=== PATIENT | female | born 1945 | race Caucasian/White ===

== ENCOUNTER → 2017-08-06 10:32 | Outpatient (CLI) | payer MEDICARE, OTHER ==
[2011-08-27 10:57] VITALS: BMI 20.4
== END | disposition home or self-care (01) ==
LOC: D.NM 10:32
DX: R10.9 Unspecified abdominal pain (principal)

== ENCOUNTER 2017-11-09 10:41 | Inpatient (IN) | payer MEDICARE, OTHER ==
[~2017-11-09] VITALS: Ht 162.6 cm; Wt 56.7 kg
--- NOTE | ~2017-11-09 | EC ---
PATIENT:RL BROOKS DATE OF SERVICE: 11/09/17 SEX: F MEDICAL RECORD: [id number] DATE OF : 45 LOCATION:[facility] D230 AGE OF PATIENT: 72 ADMISSION DATE: 11/09/17 REFERRING PHYSICIAN: INTERPRETING PHYSICIAN: EMELY CARDOSO MD ECHOCARDIOGRAM REPORT ECHO CHARGES 4 ECHO COMPLETE Date: 11/19 CLINICAL DIAGNOSIS: CHF ECHOCARDIOGRAPHIC MEASUREMENTS (adult normal given) AC root (d.<3.7cm) 2.7 cm LV Septum d (<1.2 cm> 0.9 cm Valve Excursion 1.6 cm LV Septum (systole) 1.0 cm Left Atria (s.<4.0cm> 3.0 cm LVPW d(<1.2cm) 0.9 cm RV (d.<2.3cm) 3.8 cm LVPW (sytole) 1.0 cm LV diastole(<5.6CM) 4.3 cm MV E-F(>70mm/sec) cm LV systole 3.0 cm LVOT Diameter 1.7 cm MV exc.(>10mm) 1.9 cm Est.ejection fraction (50-75%) % DOPPLER: LVIT cm/sec A 42.0 cm/sec E 97.0 cm/sec LA cm/sec RVSP 52 mmHg LVOT 85 cm/sec AOP1/2T m/s Asc. Ao 104 cm/sec RVOT 52 cm/sec RA cm/sec PA 65 cm/sec AV Gradient Peak 4.35 mmHg AV Mean 2.32 mmHg AV Area 1.9 cm MV Gradient Peak 5.28 mmHg MV Mean 1.51 mmHg MV Area cm COMMENTS: Rehabilitation Aide: Marga NICK Cone Picker: 1 Dr. Levy TAPE# PACS Pericardial Effusion Y DATE OF SERVICE: PROCEDURE: Transthoracic echocardiogram. FINDINGS: 1. Left ventricle shown to have regional wall motion abnormalities. The overall ejection fraction is 40% to 45%. There is hyperdynamic function inferolaterally with akinetic and dyskinetic anterior apical segments. 2. The left atrium is normal size, shape, and function. 3. The aortic valve is normal. ECHOCARDIOGRAM REPORT [id number] RL BROOKS 4. The mitral valve has moderate mitral regurgitation. 5. Tricuspid valve has moderate tricuspid regurgitation, RVSP of 52 mmHg. 6. The right ventricle is mildly dilated. 7. The right atrium is mildly dilated. 8. Pulmonic valve has mild pulmonic insufficiency and there is a trace pericardial effusion. CONCLUSIONS: The patient has evidence of regional wall motion abnormalities consistent with ischemic cardiomyopathy. Ejection fraction is mild to moderately reduced. TRANSINT:[id number] Voice Confirmation ID: [id number] DOCUMENT ID: [id number] EMELY CARDOSO MD at 1029 CC: [id number] DICTATION DATE: 11/20/17 0738 PHARMACY SPECIALIST: 11/20/[address] [facility] [address] [id number]
--- NOTE | ~2017-11-09 | HEMODYNAMI ---
PATIENT:RL BROOKS MEDICAL RECORD: [id number] : 45 LOCATION:[facility] D.2308 ADMISSION DATE: 11/09/17 Generatedon:11/20/201710:46 Patient name: RL BROOKS Patient #: [id number] SSN: : 1945 Date of study: 11/20/2017 Page: Of Hemodynamic Procedure Report Patient Data Patient Demographics Procedure consent was obtained First Name: RL Gender: Female Last Name: TODD : 1945 [facility] Initial: KRISTOPHER Age: 72 year(s) Patient #: [id number] Race: Unknown Additional ID: [id number] Contact details Address: [address] [address] State: [place] City: [place] Zip code: [address] Admission Admission Data Admission Date: 11/09/2017 Admission Time: 10:41 Room #: D.2308 Lab Results Lab Result Date: 11/20/2017 Lab Result Time: 0:00 Biochemistry Name Units Result Min Max BUN mg/dl 18 --(---*)-- 7 18 Creatinine mg/dl 0.7 --(*---)-- 0.6 1.3 CBC Name Units Result Min Max Hemoglobin g/dl 9.8 *-(----)-- 13.5 17.5 Procedure Procedure Types Cath Procedure Diagnostic Procedure [facility] w/Coronaries Sedation Charges Moderate Sedation up to 30 minutes PCI Procedure Coronary Stent Coronary Stent Initial Coronary Stent Additional Procedure Description Procedure Date Procedure Date: 11/20/2017 Procedure Start Time: 10:19 Procedure End Time: 10:43 Procedure Staff Name Function Benoit Levy MD Performing Physician Laura Hay RT Monitor Mimi Bustos RT Scrub James Morrell RN Nurse Procedure Data Cath Procedure Fluoroscopy Diagnostic fluoroscopy Total fluoroscopy Time: 9.8 time: 9.8 min min Diagnostic fluoroscopy Total fluoroscopy dose: dose: 1350 mGy 1350 mGy Contrast Material Contrast Material Type Amount (ml) Isovue 300 139 Entry Location Entry Primary Successful Side Size Upsize Upsize Entry Closure Succes sful Closure Location (Fr) 1 (Fr) 2 (Fr) Remarks Device Remarks Femoral Right 5 Fr 6 Fr Exoseal artery Short Estimated blood loss: 5 ml Diagnostic catheters Device Type Used For End Catheter Placement MULTIPACK Pigtail 5 Fr LV Angiography catheter MULTIPACK JL 4.0 5Fr Left Coronary catheter Angiography MULTIPACK 3DRC 5Fr Right Coronary catheter Angiography Procedure Complications No complications Procedure Medications Medication Administration Route Dosage Oxygen Heparin Flush Bag added to field 2 bags (1000units/500ml NS) 0.9% NaCl I.V. 100 ml/hr Heparin Bolus I.V. 5000 units Hemodynamics Rest HGB: 9.8 (g/dl) Heart Rate: 99 (bpm) Pressure Samples Time Site Value (mmHg) Purpose Heart Use Rate(bpm) 10:21 LV 48/-15,28 Snapshot 29 Snapshots Pre Cath Intra NCS Post Cath Vital Signs Time Heart Resp SPO2 etCO2 NIBP Rhythm Pain Sedation Rate (ipm) (%) (mmHg) (mmHg) Status Level (bpm) 10:05:53 86 15 100 0 114/63(86) NSR 0 (11) 3(A) , No pain 10:10:51 85 15 100 0 102/60(79) NSR 0 (11) 3(A) , No pain 10:14:53 83 15 100 0 111/64(88) NSR 0 (11) 3(A) , No pain 10:18:59 81 16 100 0 111/60(86) NSR 0 (11) 3(A) , No pain 10:23:03 84 16 100 0 134/72(99) NSR 0 (11) 3(A) , No pain 10:27:17 31 15 100 0 114/58(85) NSR 0 (11) 3(A) , No pain 10:31:27 81 15 100 0 105/53(83) NSR 0 (11) 3(A) , No pain 10:35:30 78 15 100 0 103/57(78) NSR 0 (11) 3(A) , No pain 10:39:34 84 15 100 0 105/57(80) NSR 0 (11) 3(A) , No pain 10:43:38 81 15 100 0 109/59(81) NSR 0 (11) 3(A) , No pain Medications Time Medication Route Dose Verified Delivered Reason Notes Effectiveness by by 10:15:09 Oxygen Vent Benoit Dominique Per physician Mildred DAVIS Resp. 10:15:20 Heparin Flush added 2 Benoit Ramirez used for Bag to bags Mildred Morrell memorial designer (1000units/500ml field NS) 10:15:29 0.9% NaCl I.V. 100 Benoit Ramirez Per physician ml/hr Mildred Morrell RN 10:28:09 Heparin Bolus I.V. 5000 Benoit Ramirez for units Mildred Morrell RN anticoagulation Procedure Log Time Note 9:40:19 Laura Hay RT(R) sent for patient. Start room use. 10:04:14 Diagnostic Cath Status : Elective 10:04:32 Time tracking: Regular hours (M-F 7:00 - 5:00) 10:04:35 Plan of Care:Hemodynamics will remain stable., Cardiac rhythm will remain stable., Comfort level will be maintained., Respiratory function will remain adequate., Patient/ family verbilizes understanding of procedure., Procedure tolerated without complication., Recovers from procedure without complications.. 10:04:40 Patient received from ICU to CCL 2 Alert and oriented. Tansferred to table in Supine position. 10:04:41 Warm blankets applied, and kalli hugger turned on for patient comfort. 10:04:41 Correct patient and procedure confirmed by team. 10:04:42 ECG and BP/O2 sat monitors applied to patient. 10:04:44 Signed procedure consent form obtained from patient. 10:04:46 Vital chart was started 10:04:47 Baseline sample Acquired. 10:04:48 Full Disclosure recording started 10:04:52 H&P Date Dictated: 11/20/2017 New H&P dictated by physician.. 10:04:53 Pre-procedure instructions explained to patient. 10:04:54 Pre-op teaching completed and patient verbalized understanding. 10:04:57 Family in waiting room. 10:04:58 Patient NPO since Midnight. 10:05:00 Is the patient allergic to Iodine/contrast media? No. 10:05:01 Was the patient premedicated? No 10:05:03 Is patient on blood thinner?Yes 10:05:06 ACC The patient was administered the following blood thiners within the last 24 hours: ACCPlavix 10:07:28 If diabetic: On Metformin? No 10:07:30 Previous problem with sedation/anesthesia? No ? 10:07:32 Snore? Unknown 10:07:33 Sleep apnea? Unknown 10:07:35 Deviated septum? Unknown 10:07:36 Opens mouth fully? Unknown 10:07:38 Sticks out tongue? Unknown 10:07:40 Airway obstruction? Unknown ? 10:07:43 Dentures? Unknown ? 10:08:41 Pre procedure: right dorsailis pedis pulse Doppler 10:08:46 Patient pain scale 0/10 ?. 10:09:33 IV patent on arrival in left wrist with 0.9% NaCl at [facility]. 10:09:35 Lab results completed and on chart. 10:09:39 Right groin area was prepped with chlora-prep and draped in sterile fashion 10:09:41 Alarms reviewed by R. N. 10:09:41 Sharps counted by scrub and verified by R.N. 10:09:43 Physician arrived 10::43 --------ALL STOP TIME OUT------ 10:09:43 Final Timeout: patient, procedure, and site verified with staff and physician. All members of the team are in agreement. 10:09:45 Right groin site verified by team. 10:09:48 Physical assessment completed. ASA score P 4 - A patient with severe systemic disease that is a constant threat to life as per Benoit Levy MD. 10:09:57 Sedation plan: IV Moderate Sedation Medication:Versed, Fentanyl 10:10:07 Use device set Femoral Dx 10:12:31 ACIST Syringe (70141) opened to sterile field. 10:12:32 Bag Decanter (2002) opened to sterile field. 10:12:32 Medline Cath Pack ([id number]) opened to sterile field. 10:12:33 DIAGNOSTIC WIRE .035 260cm J wire (085164) opened to sterile field. 10:12:35 ACIST Hand Control (90067) opened to sterile field. 10:12:36 ACIST Manifold (36343) opened to sterile field. 10:12:36 DIAGNOSTIC Multipack 5Fr catheter set (MP9730) opened to sterile field. 10:12:40 Tegaderm 4 x 4 (1626W) opened to sterile field. 10:12:48 SHEATH Prelude 5Fr 0.035 (LXF-5V-56-035) opened to sterile field. 10:15:09 Oxygen Vent was administered by Catina Cormier; Per physician; 10:15:20 Heparin Flush Bag (1000units/500ml NS) 2 bags added to field was administered by James Morrell RN; used for procedure; 10:15:29 0.9% NaCl 100 ml/hr I.V. was administered by James Morrell RN; Per physician; 10:16:06 Lab Result : Hemoglobin 9.8 g/dl 10:16:06 Lab Result : Creatinine 0.7 mg/dl 10:16:06 Lab Result : BUN 18 mg/dl 10:18:10 Zero performed for pressure channel P1 10:19:24 Procedure started. 10:19:38 Local anesthetic to right femoral artery with Lidocaine 2% by Benoit Levy MD.INITIAL ACCESS ONLY 10:20:01 A 5 Fr sheath was inserted into the Right Femoral artery 10:20:04 Baseline sample Acquired. 10:21:22 A MULTIPACK Pigtail 5 Fr catheter was advanced over the wire and used for LV Angiography. 10:21:47 LV hemodynamics recorded. 10:21:55 LV gram done using LOZA 10::57 Injector settings: Ml/sec: 5, Volume: 15, 10:22:04 EF : 25 % 10:22:29 Catheter removed. 10:22:34 A MULTIPACK JL 4.0 5Fr catheter was advanced over the wire and used for Left Coronary Angiography. 10:22:57 LCA angiography performed. 10:23:00 Injector settings: Ml/sec: 3, Volume: 6, 10:23:36 Catheter removed. 10:23:41 A MULTIPACK 3DRC 5Fr catheter was advanced over the wire and used for Right Coronary Angiography. 10:24:01 CHOICE PT Extra Support 182cm wire ([id number]) opened to sterile field. 10:24:02 INFLATOR Merit BasixCompak (JV2979) opened to sterile field. 10:24:03 SHEATH 6Fr Prelude ([id number]) opened to sterile field. 10:24:28 RCA angiography performed. 10:24:35 Injector settings: Ml/sec: 3, Volume: 6, 10:24:43 GUIDE 6FR AR 2.0 SH catheter (PE0YT6GL) opened to sterile field. 10:24:49 Catheter removed. 10:24:50 Proceeding to intervention. 10:24:57 Sheath upsized to a 6 Fr Short. 10:25:02 6 Fr ar 2 sh guide catheter was inserted over the wire 10:26:44 Guide Catheter removed. unable to cannulate vessel. 10:26:53 GUIDE 6FR HS II SH catheter ([id number]) opened to sterile field. 10:27:46 6 Fr hs 2 sh guide catheter was inserted over the wire 10:28:09 Heparin Bolus 5000 units I.V. was administered by James Morrell RN; for anticoagulation; 10:30:38 WHISPER 300cm guide wire ([id number]) opened to sterile field. 10:30:57 whisper wire advanced. 10:32:27 Inflate balloon Inflation number: 1 A EMERGE OTW 2.0 x 15 balloon ([id number]) was prepped and advanced across the R PDA, then inflated to 13 MAGGI for 0:10 (min:sec). 10:32:43 Inflation number: 2 The EMERGE OTW 2.0 x 15 balloon ([id number]) was reinflated across the R PDA, to 13 MAGGI for 0:10 (min:sec). 10:33:00 Inflation number: 3 The EMERGE OTW 2.0 x 15 balloon ([id number]) was reinflated across the R PDA, to 0 MAGGI for 0:00 (min:sec). 10:33:09 Inflation number: 4 The EMERGE OTW 2.0 x 15 balloon ([id number]) was reinflated across the R PDA, to 11 MAGGI for 0:10 (min:sec). 10:35:18 Place stent Inflation Number: 5 A PAWEL OTW 2.25 x 26 stent ([id number]) was prepped and advanced across the R PDA. The stent was deployed at 15 MAGGI for 0:10 (min:sec). 10:36:07 Inflation number: 6 The stent balloon was then re-inflated across the R PDA to 15 MAGGI for 0:10 (min:sec). 10:37:53 Stent catheter was removed intact over wire. 10:39:47 Place stent Inflation Number: 1 A PAWEL OTW 3.0 x 12 stent ([id number]) was prepped and advanced across the Prox RCA. The stent was deployed at 17 MAGGI for 0:10 (min:sec). 10:40:18 Stent catheter was removed intact over wire. 10:40:19 Wire removed. 10:40:19 Guide catheter removed. 10:40:27 EXOSEAL 6Fr (EX600) opened to sterile field. 10:40:36 Sheath removed intact; hemostasis achieved with Exoseal to the Right Femoral artery. 10:40:38 Procedure ended.(Physican Out) 10:41:39 Fluoroscopy time 09.80 minutes. 10:41:44 Fluoroscopy dose: 1350 mGy 10:41:44 Flurop Dose total: 1350 10:41:51 Contrast amount:Isovue 300 139ml. 10:41:52 Sharps counted by scrub and verified by R.N. 10:41:55 Insertion/operative site no bleeding no hematoma. 10:42:30 Post-op/insertion site Right Femoral artery dressed using a 4 x 4 and Tegaderm. 10:42:32 Post right femoral artery:stable 10:42:34 Post Procedure Pulses reassessed and unchanged 10:42:36 Post procedure rhythm: unchanged. 10:42:38 Estimated blood loss: 5 ml 10:42:40 Post procedure instruction explained to patient.Patient verbalizes understanding. 10:42:40 Patient needs reinforcement of post procedure teaching. 10:43:13 Procedure type changed to Cath procedure, Diagnostic procedure, LHC, LHC w/Coronaries, Sedation Charges, Moderate Sedation up to 30 minutes, PCI procedure, Coronary Stent, Coronary Stent Initial, Coronary Stent Additional 10:43:14 Procedure and supply charges have been captured, reviewed, submitted and are correct. 10:43:17 Procedure Complication : No complications 10:43:20 Vital chart was stopped 10:43:21 See physician's report for complete and final results. 10:43:22 Report given to ICU. 10:43:24 Patient transfered to ICU with Stretcher. 10:43:27 Procedure ended. 10:43:27 Full Disclosure recording stopped 10:43:45 ACC-PCI Only Patient was given prescriptions, or instructed by Benoit Levy MD to start/continue the following medications upon discharge: Plavix 10:43:46 End room use (Document Last) Intervention Summary Intervention Notes Time ActionType Lesion and Equipment Action# Pressure Duration Attributes Used 10:32:27 Inflate R PDA EMERGE OTW 1 13 00:10 balloon 2.0 x 15 balloon ([id number]) 10:32:43 Reinflate R PDA EMERGE OTW 2 13 00:10 balloon 2.0 x 15 balloon ([id number]) 10:33:00 Reinflate R PDA EMERGE OTW 3 0 00:00 balloon 2.0 x 15 balloon ([id number]) 10:33:09 Reinflate R PDA EMERGE OTW 4 11 00:10 balloon 2.0 x 15 balloon ([id number]) 10:35:18 Place stent R PDA PAWEL OTW 2.25 5 15 00:10 x 26 stent ([id number]) 10:36:07 Reinflate R PDA PAWEL OTW 2.25 6 15 00:10 stent x 26 stent balloon ([id number]) 10:39:47 Place stent Prox RCA PAWEL OTW 3.0 1 17 00:10 x 12 stent ([id number]) Device Usage Item Name Manufacture Quantity Catalog Number Hospital Part Current M inimal Lot# / Charge Number Stock Stock Serial# Code ACIST Syringe Acist 1 00418 238663 889113 613502 2 0 (22094) Medical Systems Inc Bag Decanter Microtek 1 362441 50219 046860 5 () Medical Inc. Medline Cath Cardinal 1 [id number] 961649 04672 028457 5 Pack Health ([id number]) DIAGNOSTIC WIRE St Jakob 1 091142 779347 730130 821488 3 0 .035 260cm J wire (978969) ACIST Hand Acist 1 15020 932979 997227 448558 5 Control (98583) Medical Systems Inc ACIST Manifold Acist 1 68725 041623 633664 062910 5 (91309) Medical Systems Inc DIAGNOSTIC Cardinal 1 PZ8191 306988 22272 330982 3 0 Multipack 5Fr Health catheter set (TS7944) Tegaderm 4 x 4 3M 1 1626W 703618 485207 466381 5 (1626W) SHEATH Prelude Merit 1 BFM-4R-42-035 944499 888338 331598 5 5Fr 0.035 Medical (JTC-2V-54-035) MULTIPACK Cardinal 1 405746 5 Pigtail 5 Fr Health catheter MULTIPACK JL Cardinal 1 206609 5 4.0 5Fr Health catheter MULTIPACK 3DRC Cardinal 1 409632 5 5Fr catheter Health CHOICE PT Extra Nelson 1 [id number] 154112 088880 930526 5 Support 182cm Scientific wire ([id number]) INFLATOR Merit Merit 1 SH0262 472406 705580 370536 1 5 BasCubikal Medical (UM3534) SHEATH 6Fr Merit 1 [id number] 893885 981805 597633 5 Prelude Medical ([id number]) GUIDE 6FR AR Medtronic 1 [id number] 292998 99441 684927 1 2.0 SH catheter (VA2BX8AC) GUIDE 6FR HS II Medtronic 1 [id number] 891795 04460 943199 1 SH catheter ([id number]) WHISPER 300cm Pearl 1 [id number] 360527 653995 394361 5 guide wire Vascular ([id number]) EMERGE OTW 2.0 Nelson 1 [id number] 374712 794866 278631 5 [id number] x 15 balloon Scientific ([id number]) PAWEL OTW 2.25 x Medtronic 1 [id number] 455205 61718 160928 5 [id number] 26 stent ([id number]) PAWEL OTW 3.0 x Medtronic 1 [id number] 653483 058557 130322 5 [id number] 12 stent ([id number]) EXOSEAL 6Fr Cardinal 1 EX600 142840 201594 509541 1 0 (EX600) Health Signature Audit [place] Stage Time Signature Unsigned Intra-Procedure 11/20/2017 Laura Hay 10:46:29 AM RT(R) Signatures Monitor : Laura Hay RT Signature : Date : Time : [facility] [address] [place] [address]
--- NOTE | ~2017-11-09 | OP ---
PATIENT NAME: RL BROOKS MEDICAL RECORD: [id number] :45 LOCATION:D.MS [facility] ADMISSION DATE:11/09/17 SURGEON: PORSHA HUA MD DATE OF OPERATION: 11/20/2017 PROCEDURES: 1. PTCA stent RCA. 2. PTCA stent RCA PDA. 3. Left heart catheterization. 4. Selective coronary angiography. 5. Left ventriculogram. INDICATION: Myocardial infarction. PROCEDURE IN DETAIL: After informed consent was obtained and after a detailed description of the risks, benefits as well as alternative therapies, the patient elected to proceed with angiogram and angioplasty. The right femoral area was prepped and draped in normal sterile fashion. Right femoral artery was cannulated via modified Seldinger technique with placement of 6-Azeri sheath. All catheters exchanged through this sheath. FINDINGS: The left ventriculogram was performed in standard 30-degree LOZA view, reveals anteroapical hypokinesis, ejection fraction 30%. SELECTIVE CORONARY ANGIOGRAPHY: 1. Left main is with no significant angiographic disease. 2. Left anterior descending has previously placed stents, these are widely patent with no significant restenosis. No disease elsewise throughout the LAD or its branches. 3. Left circumflex has moderate irregularities, but no flow-limiting stenosis. 4. The right coronary has previously placed stents. There was 100% stenosis of the PDA stent, 80% in-stent restenosis of the RCA stent. PTCA STENT OF THE RCA AND PDA: The PDA was addressed with a 2.25 x 26 mm Foster. The RCA with a 3.0 x 12 mm Fred. The result was 0% residual throughout latter-day of DANELLE-3 flow. IMPRESSION: Successful SURGERY TECHNICIAN stent of the PDA going from 100% initial stenosis to 0% residual stenosis. Successful PTCA stent of the RCA going from 80% initial stenosis to 0% residual stenosis. TRANSINT:[id number] Voice Confirmation ID: [id number] DOCUMENT ID: [id number] PORSHA HUA MD at 1403 CC: [id number] DICTATION DATE: 11/20/17 1047 CAP SEWER: 11/20/17 1217 [place] [address]
--- NOTE | ~2017-11-09 | CN ---
PATIENT NAME:RL CARRASCO MEDICAL RECORD: [id number] : 45 LOCATION:D.[facility]36 ADMIT DATE: 11/09/17 ACCOUNT: [id number] CONSULTING PHYSICIAN: GERSON JONES MD REFERRING PHYSICIAN: KOBE SOLORZANO MD DATE OF CONSULTATION: 11/09/2017 CONSULT REQUESTING PHYSICIAN: Dr. Kobe Solorzano. REASON FOR CONSULTATION: Pneumonia. HISTORY OF PRESENT ILLNESS: Ms. Carrasco is a 72-year-old female who has a history of Mycobacterium avium. She is sick for the last few weeks. Recently, she was hospitalized at [facility] for chest pain and the cardiac workup was negative. She also had pneumonia at that time. She has chills, no fever. She is coughing with very little yellow color sputum production. For her Mycobacterium avium, she follows at [facility] and she is on Zithromax p.o., ethambutol p.o. REVIEW OF SYSTEMS: Mainly in the history of present illness. PAST MEDICAL HISTORY: 1. Mycobacterium avium since January 2014. 2. Coronary artery disease. 3. Gastroesophageal reflux disease. 4. Hypertension. 5. Hyperlipidemia. 6. Asthma. 7. Backache. PAST SURGICAL HISTORY: 1. She has cardiac catheterization and stent placement. 2. Appendectomy. 3. Status post pacemaker placement. 4. History of elective cardioversion. 5. History of bladder repair. ALLERGIES: SHE IS ALLERGIC TO TICLID. PRESENT MEDICATIONS: [employer] is reviewed. PERSONAL AND SOCIAL HISTORY: The patient is a nonsmoker, nondrinker. FAMILY HISTORY: Noncontributory. The patient is an ex-smoker. PHYSICAL EXAMINATION: VITAL SIGNS: The blood pressure is 103/60, pulse is 89, respiration is 18, temperature 99.9, SPO2 is 96% on 2 liters nasal cannula. HEENT: Conjunctivae are pink. Sclerae are not icteric. NECK: Supple, no JVD. CHEST: The chest excursion is minimal on both sides, there are basal crackles. No wheezing. HEART: Rhythm regular, normal sound, no murmur. ABDOMEN: Soft, bowel sounds present. No hepatosplenomegaly. RECTAL: Deferred. CONSULT REPORT [id number] RL CARRASCO EXTREMITIES: No cyanosis, no clubbing, no pedal edema. SKIN: Warm, normal turgor. CENTRAL NERVOUS SYSTEM: The patient is awake and alert. There are no obvious cranial nerve abnormality. The gait was not tested. IMAGING: Chest x-ray is not available for review. OTHER LABORATORY DATA: CBC: WBC 14,000, hemoglobin 12.4, hematocrit 36.6, the platelet count is 359. Chemistry: Sodium 128, potassium is 4, BUN is 13, creatinine is 0.8, glucose 117. IMPRESSION: 1. Nonresolving pneumonia. 2. Asthma acute exacerbation. 3. Mycobacterium avium infection. The patient follows at [facility] since 2013. 4. Acute cough. 5. Leukocytosis secondary to pneumonia. 6. Gastroesophageal reflux disease. 7. Coronary artery disease. RECOMMENDATION: 1. Continue vancomycin, meropenem, and Levaquin IV. 2. Start on Brovana and budesonide nebulizer. Start her on Singulair. 3. Continue albuterol/ipratropium nebulizer. 4. Mucinex DM 2 tablets b.i.d. We will get the record from the [facility]. We will continue her home medication, Zithromax, and ethambutol. Dr. Fontenot, thank you for involving me in the care of Ms. Carrasco. TRANSINT:[id number] Voice Confirmation ID: [id number] DOCUMENT ID: [id number] GERSON JONES MD at 1806 CC: KOBE SOLORZANO [id number] DICTATION DATE: 11/09/17 1623 SUPERVISOR CHLORINE LIQUEFACTION: 11/09/17 210 ADM IN [address] [place] [address]
--- NOTE | ~2017-11-09 | HP ---
PATIENT: RL BROOKS MEDICAL RECORD: [id number] ACCOUNT: [id number] LOCATION:[id number] : 45 ADMISSION DATE: 11/09/17 HISTORY AND PHYSICAL EXAMINATION DATE OF ADMISSION: 11/09/2017 CHIEF COMPLAINT: Shortness of breath, weakness, coughing, low-grade fever, yellow sputum production. HISTORY OF PRESENT ILLNESS: The patient is a 72-year-old female with longstanding history of having breathing problems. She is cared for by [facility] for Mycobacterium avium chronic conditions. She is treated with daily azithromycin as well as ethambutol. The patient over the past week has had fevers and chills. She has had sweats. She has had green sputum production. She has failed outpatient therapy, was felt the patient should be admitted for further treatment. PAST MEDICAL HISTORY: Significant for having aspergillosis. She has also had history of Mycobacterium avium. She has had vitamin D deficiency. She has had anemia, depression, coronary arteriosclerotic heart disease, history of atrial fibrillation, asthma. She has had a hysterectomy. She had a bladder repair. She also has had 3 stents placed. She had a pacemaker placed. She has had hypertension. MEDICATIONS: Include alendronate 70 mg once a week, amlodipine 10 mg once a day, azithromycin 250 mg once a day, Breo Ellipta 200 mcg/25 mcg 1 puff daily, Plavix 75 mg once a day, Lexapro 10 mg once a day, ethambutol 400 mg once a day, Zetia 10 mg once a day, and Incruse Ellipta 62.5 mcg per day, DuoNeb inhaler 2 puffs q.4 hours p.r.n. shortness of breath, Nitrostat 0.4 mg sublingual q.5 minutes p.r.n. chest pain, Protonix 40 mg once a day, sotalol 80 mg b.i.d., Carafate 1 gm q.a.c. and q.h.s., Zanaflex 2 mg every 8 hours as needed, tramadol 50 mg 1 every 6 hours p.r.n. pain, valsartan/hydrochlorothiazide 320/12.5 once a day, Ventolin HFA 90 mcg once a day, vitamin D3 2000 international units 2 tablets once a day, Ambien 5 mg p.o. q.h.s. ALLERGIES: DOXYCYCLINE, STATINS, SULFA, TICLID, WELCHOL. FAMILY HISTORY: Father at 82 years of age. He had throat as well as bone cancer. Mother had myocardial infarction, at 66 years of age. HABITS: The patient is a nonsmoker, nondrinker. REVIEW OF SYSTEMS: CONSTITUTIONAL: She denies any headaches, seizure or syncope. She denied change in visual or auditory acuity. PULMONARY: She has had cough, congestion, increased shortness of breath. CARDIOVASCULAR: She has had no chest pain, palpitation, PND, or orthopnea. GASTROINTESTINAL: No chronic nausea, vomiting, melena or hematochezia. GENITOURINARY: No urgency, frequency, or dysuria. PHYSICAL EXAMINATION: VITAL SIGNS: Today, the patient's weight is 108, her blood pressure is 122/66, pulse 90, respirations are 14, and temperature 96.8. HEENT: Head is normocephalic. No lesions. Ears: TMs clear. Eyes: Pupils HISTORY AND PHYSICAL [id number] RL BROOKS equal, round, reactive to light. Her extraocular movements are intact. Her nasal cavity, oral cavity, oropharynx clear. NECK: Supple. There is no adenopathy. HEART: Regular rate. LUNGS: She has bibasilar rales. Decreased breath sounds in all cherry. ABDOMEN: Soft, bowel sounds positive. EXTREMITIES: Lower extremities had no edema. LABORATORY DATA AND DIAGNOSTIC STUDIES: Chest x-ray today shows bilateral infiltrates with a stable left upper lobe scarring. CBC has a white count elevated at 15.6. ASSESSMENT: 1. History of chronic Mycobacterium avium, currently undergoing treatment. 2. Bilateral pneumonia. 3. Hypertension. 4. Chronic obstructive pulmonary disease. 5. Arteriosclerotic heart disease. 6. Gastroesophageal reflux. 7. Vitamin D deficiency. PLAN: The patient will be admitted. We will obtain sputum cultures as well as Gram stain. She will be placed on Merrem 1 gm every 8 hours as well as vancomycin 1 gram q.12 hours, pharmacy will dose and get peak and trough. Also placed on Levaquin 500 mg IV q.8 hours. Pulmonary consultation will be obtained, O2 supplementation, pulmonary toiletry. Continue to evaluate. TRANSINT:[id number] Voice Confirmation ID: [id number] DOCUMENT ID: [id number] KOBE SOLORZANO MD at 0612 CC: [id number] DICTATION DATE: 11/09/17 172 BENEFIT AUTHORIZER: 11/09/171952 ADM IN [id number] [place] [address]
[2017-11-09 13:25] LABS: BASOPHILS 0.1 % (0-2); EOSINOPHILS 1.6 % (0-7); HEMATOCRIT 36.6 % (36.0-48.0); HEMOGLOBIN 12.4 g/dL (12-16); IMMATURE GRANULOCYTES 0.8 % (0-5); LYMPHOCYTES 7.9 % (15-50); MCH 28.4 pg (26.0-34.0); MCHC 33.9 g/dL (31.0-37.0); MCV 83.8 fL (80.0-100.0); MEAN PLATELET VOLUME 7.9 fL (7.4-10.4); MONOCYTES 5.4 % (2-11); NEUTROPHILS 84.2 % (40-80); RBC 4.37 10x6/uL (4.00-5.40); RDW 13.6 % (11.5-14.5)
[2017-11-09 13:29] LABS: PLATELET COUNT 359 10x3/uL (130-400)
[2017-11-09 13:34] LABS: ANION GAP 17.4 mmol/L (8-16); CALCIUM 9.2 mg/dL (8.5-10.1); CARBON DIOXIDE 23.6 mmol/L (21.0-32.0); CREATININE - SERUM 0.8 mg/dL (0.6-1.3)
[2017-11-09 14:25] VITALS: BP 103/60
[2017-11-09 16:49] VITALS: BP 119/57
[2017-11-09] MEDS ORDERED: AMBIEN5 MG PO (17:59)
[2017-11-09] MEDS ORDERED: LOTREL 5-40 MG1 EACH (18:01)
[2017-11-09 20:20] VITALS: BP 121/53
[2017-11-10 01:02] VITALS: BP 134/64
[2017-11-10 04:22] VITALS: BP 126/58
[2017-11-10 05:00] LABS: BASOPHILS 0.2 % (0-2); EOSINOPHILS 2.6 % (0-7); HEMATOCRIT 29.9 % (36.0-48.0); IMMATURE GRANULOCYTES 0.9 % (0-5); LYMPHOCYTES 10.3 % (15-50); MCH 28.2 pg (26.0-34.0); MCHC 33.4 g/dL (31.0-37.0); MCV 84.2 fL (80.0-100.0); MEAN PLATELET VOLUME 7.9 fL (7.4-10.4); PLATELET COUNT 349 10x3/uL (130-400); RBC 3.55 10x6/uL (4.00-5.40); RDW 13.8 % (11.5-14.5); WBC 12.5 10x3/uL (4.8-10.8)
[2017-11-10 05:12] LABS: ANION GAP 13.6 mmol/L (8-16); CALCIUM 8.4 mg/dL (8.5-10.1); CARBON DIOXIDE 22.5 mmol/L (21.0-32.0); CREATININE - SERUM 0.9 mg/dL (0.6-1.3); POTASSIUM - SERUM 4.1 mmol/L (3.5-5.1)
[2017-11-10 07:00] VITALS: BP 116/57
[2017-11-10 12:25] VITALS: BP 110/51
[2017-11-10 13:44] VITALS: BMI 18.5
[2017-11-10 17:41] VITALS: BP 123/58
[2017-11-10 20:53] VITALS: BP 122/49
[2017-11-11 01:13] VITALS: BP 134/54
[2017-11-11 04:45] VITALS: BP 124/64
[2017-11-11 05:11] LABS: BASOPHILS 0.2 % (0-2); EOSINOPHILS 2.5 % (0-7); HEMOGLOBIN 9.3 g/dL (12-16); IMMATURE GRANULOCYTES 1.1 % (0-5); LYMPHOCYTES 12.7 % (15-50); MCH 28.1 pg (26.0-34.0); MCHC 33.2 g/dL (31.0-37.0); MCV 84.6 fL (80.0-100.0); MEAN PLATELET VOLUME 7.7 fL (7.4-10.4); NEUTROPHILS 70.5 % (40-80); PLATELET COUNT 301 10x3/uL (130-400); RBC 3.31 10x6/uL (4.00-5.40); RDW 13.6 % (11.5-14.5); WBC 9.7 10x3/uL (4.8-10.8)
[2017-11-11 05:20] LABS: CALC OSMOLALITY 251 mosm/kg (275-300); CALCIUM 8.3 mg/dL (8.5-10.1); CHLORIDE - SERUM 96 mmol/L (98-107); CREATININE - SERUM 0.7 mg/dL (0.6-1.3); GLUCOSE 103 mg/dL (74-106); POTASSIUM - SERUM 3.9 mmol/L (3.5-5.1); SODIUM 127 mmol/L (136-145); eGFR NON AFRICAN AMERICAN 87 mL/min (90-120)
[2017-11-11 05:21] LABS: UREA NITROGEN 4 mg/dL (7-18)
[2017-11-11 07:43] VITALS: BP 128/54
[2017-11-11 12:28] VITALS: BP 115/64
[2017-11-11 15:49] VITALS: BP 128/72
[2017-11-11 20:53] VITALS: BP 118/50
[2017-11-12 02:16] VITALS: BP 118/42
[2017-11-12 04:30] LABS: BASOPHILS 0.2 % (0-2); EOSINOPHILS 2.1 % (0-7); HEMATOCRIT 27.9 % (36.0-48.0); HEMOGLOBIN 9.3 g/dL (12-16); IMMATURE GRANULOCYTES 0.9 % (0-5); LYMPHOCYTES 11.5 % (15-50); MCH 28.1 pg (26.0-34.0); MCHC 33.3 g/dL (31.0-37.0); MCV 84.3 fL (80.0-100.0); MEAN PLATELET VOLUME 7.9 fL (7.4-10.4); NEUTROPHILS 71.3 % (40-80); PLATELET COUNT 331 10x3/uL (130-400); RBC 3.31 10x6/uL (4.00-5.40); RDW 13.8 % (11.5-14.5); WBC 10.1 10x3/uL (4.8-10.8)
[2017-11-12 04:40] LABS: CALC OSMOLALITY 252 mosm/kg (275-300); CALCIUM 7.6 mg/dL (8.5-10.1); CARBON DIOXIDE 26.8 mmol/L (21.0-32.0); CHLORIDE - SERUM 93 mmol/L (98-107); CREATININE - SERUM 0.7 mg/dL (0.6-1.3); GLUCOSE 101 mg/dL (74-106); POTASSIUM - SERUM 3.4 mmol/L (3.5-5.1); SODIUM 127 mmol/L (136-145); eGFR NON AFRICAN AMERICAN 87 mL/min (90-120)
[2017-11-12 04:55] LABS: UREA NITROGEN 6 mg/dL (7-18)
[2017-11-12 04:56] VITALS: BP 124/54
[2017-11-12 07:51] VITALS: BP 120/51
[2017-11-12 12:10] VITALS: BP 121/65
[2017-11-12 15:39] VITALS: BP 130/62
[2017-11-12 20:00] VITALS: BP 125/55
[2017-11-13] VITALS: BP 116/45
[2017-11-13 04:00] VITALS: BP 115/44
[2017-11-13 04:06] LABS: BASOPHILS 0.1 % (0-2); EOSINOPHILS 1.8 % (0-7); HEMATOCRIT 27.7 % (36.0-48.0); HEMOGLOBIN 9.2 g/dL (12-16); IMMATURE GRANULOCYTES 0.8 % (0-5); LYMPHOCYTES 12.4 % (15-50); MCH 27.9 pg (26.0-34.0); MCHC 33.2 g/dL (31.0-37.0); MCV 83.9 fL (80.0-100.0); MEAN PLATELET VOLUME 7.8 fL (7.4-10.4); MONOCYTES 12.2 % (2-11); NEUTROPHILS 72.7 % (40-80); PLATELET COUNT 304 10x3/uL (130-400); RDW 13.6 % (11.5-14.5); WBC 10.8 10x3/uL (4.8-10.8)
[2017-11-13 04:19] LABS: CALC OSMOLALITY 250 mosm/kg (275-300); CALCIUM 8.2 mg/dL (8.5-10.1); CARBON DIOXIDE 26.9 mmol/L (21.0-32.0); CHLORIDE - SERUM 92 mmol/L (98-107); CREATININE - SERUM 0.7 mg/dL (0.6-1.3); GLUCOSE 114 mg/dL (74-106); POTASSIUM - SERUM 3.6 mmol/L (3.5-5.1); SODIUM 125 mmol/L (136-145); UREA NITROGEN 6 mg/dL (7-18); eGFR NON AFRICAN AMERICAN 87 mL/min (90-120)
[2017-11-13 08:10] VITALS: BP 141/42
[2017-11-13 12:40] VITALS: BP 120/47
[2017-11-13 15:59] VITALS: BP 120/64
[2017-11-13 20:00] VITALS: BP 126/57
[2017-11-14] VITALS: BP 112/52
[2017-11-14 04:00] VITALS: BP 108/55
[2017-11-14 07:46] LABS: BASOPHILS 0.2 % (0-2); EOSINOPHILS 1.6 % (0-7); HEMATOCRIT 29.2 % (36.0-48.0); HEMOGLOBIN 9.8 g/dL (12-16); IMMATURE GRANULOCYTES 0.9 % (0-5); LYMPHOCYTES 10.3 % (15-50); MCH 28.1 pg (26.0-34.0); MCHC 33.6 g/dL (31.0-37.0); MCV 83.7 fL (80.0-100.0); MEAN PLATELET VOLUME 8.1 fL (7.4-10.4); MONOCYTES 10.5 % (2-11); NEUTROPHILS 76.5 % (40-80); PLATELET COUNT 342 10x3/uL (130-400); RBC 3.49 10x6/uL (4.00-5.40); RDW 13.4 % (11.5-14.5); WBC 11.7 10x3/uL (4.8-10.8)
[2017-11-14 07:58] LABS: CALC OSMOLALITY 252 mosm/kg (275-300); CALCIUM 8.5 mg/dL (8.5-10.1); CARBON DIOXIDE 30.7 mmol/L (21.0-32.0); CHLORIDE - SERUM 89 mmol/L (98-107); CREATININE - SERUM 0.7 mg/dL (0.6-1.3); GLUCOSE 100 mg/dL (74-106); MAGNESIUM - SERUM 1.6 mg/dL (1.8-2.4); PHOSPHOROUS 2.4 mg/dL (2.5-4.9); POTASSIUM - SERUM 3.1 mmol/L (3.5-5.1); SODIUM 127 mmol/L (136-145); UREA NITROGEN 7 mg/dL (7-18); eGFR NON AFRICAN AMERICAN 87 mL/min (90-120)
[2017-11-14 09:53] VITALS: BP 121/46
[2017-11-14 14:12] VITALS: BP 125/49
[2017-11-14 17:58] VITALS: BP 113/71
[2017-11-14 21:15] VITALS: BP 124/53
[2017-11-15 04:33] VITALS: BP 129/47
[2017-11-15 07:29] LABS: ALBUMIN 1.7 g/dL (3.4-5.0); ANION GAP 10.1 mmol/L (8-16); BILIRUBIN - TOTAL 0.76 mg/dL (0.2-1.3); CALCIUM 8.3 mg/dL (8.5-10.1); CARBON DIOXIDE 28.9 mmol/L (21.0-32.0); CREATININE - SERUM 0.8 mg/dL (0.6-1.3); PROTEIN - SERUM 5.6 g/dL (6.4-8.2)
[2017-11-15 07:35] LABS: BASOPHILS 0.3 % (0-2); EOSINOPHILS 1.2 % (0-7); HEMOGLOBIN 9.3 g/dL (12-16); IMMATURE GRANULOCYTES 0.6 % (0-5); LYMPHOCYTES 11.3 % (15-50); MCH 28.1 pg (26.0-34.0); MCHC 33.2 g/dL (31.0-37.0); MCV 84.6 fL (80.0-100.0); MEAN PLATELET VOLUME 8.1 fL (7.4-10.4); MONOCYTES 11.8 % (2-11); NEUTROPHILS 74.8 % (40-80); PLATELET COUNT 360 10x3/uL (130-400); RBC 3.31 10x6/uL (4.00-5.40); RDW 13.7 % (11.5-14.5); WBC 10.7 10x3/uL (4.8-10.8)
[2017-11-15 08:48] VITALS: BP 120/52
[2017-11-15 11:51] VITALS: BP 100/35
[2017-11-15 17:06] VITALS: BP 133/60
[2017-11-15 18:22] LABS: CALCIUM 8.7 mg/dL (8.5-10.1); CARBON DIOXIDE 26.9 mmol/L (21.0-32.0); CREATININE - SERUM 0.8 mg/dL (0.6-1.3); POTASSIUM - SERUM 3.9 mmol/L (3.5-5.1)
[2017-11-15 21:36] VITALS: BP 115/53
[2017-11-16 02:15] VITALS: BP 108/47
[2017-11-16 04:39] VITALS: BP 104/44
[2017-11-16 09:32] LABS: ALBUMIN 1.8 g/dL (3.4-5.0); ANION GAP 12.7 mmol/L (8-16); BILIRUBIN - TOTAL 0.87 mg/dL (0.2-1.3); CALCIUM 8.5 mg/dL (8.5-10.1); CARBON DIOXIDE 29.4 mmol/L (21.0-32.0); CREATININE - SERUM 0.8 mg/dL (0.6-1.3); POTASSIUM - SERUM 3.1 mmol/L (3.5-5.1); PROTEIN - SERUM 6.2 g/dL (6.4-8.2)
[2017-11-16 09:35] LABS: BASOPHILS 0.1 % (0-2); EOSINOPHILS 0.3 % (0-7); HEMATOCRIT 31.1 % (36.0-48.0); HEMOGLOBIN 10.5 g/dL (12-16); IMMATURE GRANULOCYTES 0.4 % (0-5); LYMPHOCYTES 3.9 % (15-50); MCH 28.3 pg (26.0-34.0); MCHC 33.8 g/dL (31.0-37.0); MCV 83.8 fL (80.0-100.0); MEAN PLATELET VOLUME 8.2 fL (7.4-10.4); MONOCYTES 4.2 % (2-11); NEUTROPHILS 91.1 % (40-80); RBC 3.71 10x6/uL (4.00-5.40); RDW 13.7 % (11.5-14.5)
[2017-11-16 09:39] LABS: PLATELET COUNT 461 10x3/uL (130-400); WBC 19.9 10x3/uL (4.8-10.8)
[2017-11-16 09:52] VITALS: BP 126/52
[2017-11-16 14:54] VITALS: BP 110/40
[2017-11-16 18:48] VITALS: BP 124/64
[2017-11-17 01:35] VITALS: BP 148/54
[2017-11-17 04:00] VITALS: BP 118/53
[2017-11-17 09:30] VITALS: BP 126/75
[2017-11-17 12:58] LABS: BASOPHILS 0.1 % (0-2); EOSINOPHILS 0.8 % (0-7); HEMATOCRIT 26.8 % (36.0-48.0); IMMATURE GRANULOCYTES 0.6 % (0-5); MCHC 33.6 g/dL (31.0-37.0); MCV 83.2 fL (80.0-100.0); MEAN PLATELET VOLUME 8.1 fL (7.4-10.4); NEUTROPHILS 86.5 % (40-80); PLATELET COUNT 469 10x3/uL (130-400); RBC 3.22 10x6/uL (4.00-5.40); RDW 13.8 % (11.5-14.5); WBC 17.2 10x3/uL (4.8-10.8)
[2017-11-17 13:17] LABS: ANION GAP 13.6 mmol/L (8-16); CALCIUM 7.9 mg/dL (8.5-10.1); CARBON DIOXIDE 28.8 mmol/L (21.0-32.0); CREATININE - SERUM 0.9 mg/dL (0.6-1.3); POTASSIUM - SERUM 3.4 mmol/L (3.5-5.1); VANCOMYCIN - TROUGH 29.8 ug/mL (10.0-20.0)
[2017-11-17 13:27] VITALS: BP 130/64
[2017-11-17 15:53] VITALS: BP 112/49
[2017-11-17 20:00] VITALS: BP 115/49
[2017-11-18 04:00] VITALS: BP 120/66
[2017-11-18 04:49] LABS: BASOPHILS 0.1 % (0-2); EOSINOPHILS 2.6 % (0-7); HEMATOCRIT 27.4 % (36.0-48.0); HEMOGLOBIN 9.1 g/dL (12-16); IMMATURE GRANULOCYTES 0.5 % (0-5); LYMPHOCYTES 7.2 % (15-50); MCH 27.8 pg (26.0-34.0); MCHC 33.2 g/dL (31.0-37.0); MCV 83.8 fL (80.0-100.0); NEUTROPHILS 82.6 % (40-80); PLATELET COUNT 508 10x3/uL (130-400); RBC 3.27 10x6/uL (4.00-5.40); RDW 13.9 % (11.5-14.5); WBC 13.7 10x3/uL (4.8-10.8)
[2017-11-18 05:10] LABS: ALBUMIN 1.5 g/dL (3.4-5.0); ALKALINE PHOSPHATASE 67 U/L (46-116); CALC OSMOLALITY 243 mosm/kg (275-300); CALCIUM 8.1 mg/dL (8.5-10.1); CARBON DIOXIDE 29.8 mmol/L (21.0-32.0); CHLORIDE - SERUM 88 mmol/L (98-107); CREATININE - SERUM 0.7 mg/dL (0.6-1.3); GLUCOSE 97 mg/dL (74-106); SODIUM 122 mmol/L (136-145); UREA NITROGEN 7 mg/dL (7-18); VANCOMYCIN - RANDOM 20.1 ug/mL (10.0-20.0); eGFR NON AFRICAN AMERICAN 87 mL/min (90-120)
[2017-11-18 05:14] LABS: ALT (SGPT) 12 U/L (10-68)
[2017-11-18 09:35] VITALS: BP 134/56
[2017-11-18 15:30] VITALS: BP 106/43
[2017-11-18 20:00] VITALS: BP 115/52
[2017-11-19] VITALS (16 sets, daily range): BP systolic 79–125; BP diastolic 7–74; Ht 162.6 cm; Wt 56.7 kg
[2017-11-19 04:19] LABS: BASOPHILS 0.1 % (0-2); EOSINOPHILS 0.6 % (0-7); HEMATOCRIT 29.1 % (36.0-48.0); HEMOGLOBIN 9.5 g/dL (12-16); IMMATURE GRANULOCYTES 0.6 % (0-5); LYMPHOCYTES 4.2 % (15-50); MCH 27.9 pg (26.0-34.0); MCHC 32.6 g/dL (31.0-37.0); MCV 85.3 fL (80.0-100.0); MONOCYTES 5.3 % (2-11); NEUTROPHILS 89.2 % (40-80); PLATELET COUNT 691 10x3/uL (130-400); RBC 3.41 10x6/uL (4.00-5.40); RDW 14.3 % (11.5-14.5); WBC 24.5 10x3/uL (4.8-10.8)
[2017-11-19 04:41] LABS: ALBUMIN 1.8 g/dL (3.4-5.0); BILIRUBIN - TOTAL 0.56 mg/dL (0.2-1.3); CALCIUM 8.6 mg/dL (8.5-10.1); CARBON DIOXIDE 28.9 mmol/L (21.0-32.0); CREATININE - SERUM 0.8 mg/dL (0.6-1.3); PROTEIN - SERUM 6.9 g/dL (6.4-8.2)
[2017-11-19 04:44] LABS: ANION GAP 12.6 mmol/L (8-16); POTASSIUM - SERUM 4.5 mmol/L (3.5-5.1)
[2017-11-20] VITALS (70 sets, daily range): BP systolic 77–127; BP diastolic 43–71
[2017-11-20 02:50] LABS: BASOPHILS 0.1 % (0-2); EOSINOPHILS 0.2 % (0-7); HEMATOCRIT 29.9 % (36.0-48.0); HEMOGLOBIN 9.8 g/dL (12-16); IMMATURE GRANULOCYTES 0.8 % (0-5); LYMPHOCYTES 5.2 % (15-50); MCH 27.6 pg (26.0-34.0); MCHC 32.8 g/dL (31.0-37.0); MCV 84.2 fL (80.0-100.0); MEAN PLATELET VOLUME 7.8 fL (7.4-10.4); NEUTROPHILS 89.7 % (40-80); RBC 3.55 10x6/uL (4.00-5.40); RDW 14.4 % (11.5-14.5); WBC 19.5 10x3/uL (4.8-10.8)
[2017-11-20 03:10] LABS: PLATELET COUNT 517 10x3/uL (130-400)
[2017-11-20 03:20] LABS: ALBUMIN 1.6 g/dL (3.4-5.0); ALKALINE PHOSPHATASE 96 U/L (46-116); ALT (SGPT) 15 U/L (10-68); BILIRUBIN - TOTAL 0.48 mg/dL (0.2-1.3); CALC OSMOLALITY 269 mosm/kg (275-300); CALCIUM 8.4 mg/dL (8.5-10.1); CARBON DIOXIDE 28.3 mmol/L (21.0-32.0); CHLORIDE - SERUM 96 mmol/L (98-107); CREATININE - SERUM 0.7 mg/dL (0.6-1.3); GLUCOSE 140 mg/dL (74-106); MAGNESIUM - SERUM 1.9 mg/dL (1.8-2.4); POTASSIUM - SERUM 4.3 mmol/L (3.5-5.1); PROTEIN - SERUM 5.8 g/dL (6.4-8.2); SODIUM 133 mmol/L (136-145); eGFR NON AFRICAN AMERICAN 87 mL/min (90-120)
[2017-11-20 03:24] LABS: UREA NITROGEN 18 mg/dL (7-18)
[2017-11-20 08:42] LABS: CKMB 3.8 U/L (0.0-3.6); CREATINE KINASE 141 UL (21-215)
[2017-11-20 08:43] LABS: TROPONIN-I 1.061 ng/mL (0.000-0.060)
[2017-11-20 08:48] LABS: APPEARANCE CLOUDY (CLEAR); BILIRUBIN NEGATIVE (NEGATIVE); COLOR YELLOW (YELLOW); GLUCOSE NEGATIVE (NEGATIVE); KETONE NEGATIVE (NEGATIVE); NITRITE NEGATIVE (NEGATIVE); PROTEIN 1+ mg/dL (NEGATIVE); UROBILINOGEN NORMAL (NORMAL)
[2017-11-20 08:53] LABS: AMORPHOUS SEDIMENT <1+ /lpf (NONE SEEN); BACTERIA MODERATE /hpf (NONE SEEN); GRANULAR CAST 0-5 /lpf (NONE SEEN); MUCUS <1+ /lpf (NONE SEEN); RED CELLS - URINE 0-5 /hpf (0-5)
[2017-11-20 14:11] LABS: CKMB 4.8 U/L (0.0-3.6)
[2017-11-20 14:14] LABS: CREATINE KINASE 256 UL (21-215)
[2017-11-20 14:15] LABS: TROPONIN-I 1.338 ng/mL (0.000-0.060)
[2017-11-20 22:48] LABS: CKMB 2.5 U/L (0.0-3.6); CREATINE KINASE 237 UL (21-215)
[2017-11-20 22:50] LABS: TROPONIN-I 1.346 ng/mL (0.000-0.060)
[2017-11-21] VITALS (77 sets, daily range): BP systolic 77–126; BP diastolic 43–85
[2017-11-21 05:03] LABS: BASOPHILS 0.1 % (0-2); EOSINOPHILS 0 % (0-7); HEMATOCRIT 27.7 % (36.0-48.0); LYMPHOCYTES 9.4 % (15-50); MCH 27.3 pg (26.0-34.0); MCHC 32.5 g/dL (31.0-37.0); MCV 83.9 fL (80.0-100.0); MEAN PLATELET VOLUME 8.1 fL (7.4-10.4); MONOCYTES 6.3 % (2-11); NEUTROPHILS 83.2 % (40-80); PLATELET COUNT 617 10x3/uL (130-400)
[2017-11-21 06:10] LABS: ALBUMIN 1.4 g/dL (3.4-5.0); ANION GAP 14.2 mmol/L (8-16); BILIRUBIN - TOTAL 0.57 mg/dL (0.2-1.3); CALCIUM 8.7 mg/dL (8.5-10.1); CARBON DIOXIDE 29.9 mmol/L (21.0-32.0); PROTEIN - SERUM 6.5 g/dL (6.4-8.2)
[2017-11-21 06:21] LABS: CREATININE - SERUM 1.1 mg/dL (0.6-1.3); POTASSIUM - SERUM 3.1 mmol/L (3.5-5.1)
[2017-11-21 16:09] LABS: AFB SPECIMEN PROCESSING Concentration (())
[2017-11-22] VITALS (37 sets, daily range): BP systolic 74–129; BP diastolic 40–83
[2017-11-22 05:31] LABS: BASOPHILS 0.2 % (0-2); EOSINOPHILS 0 % (0-7); HEMATOCRIT 25.8 % (36.0-48.0); HEMOGLOBIN 8.5 g/dL (12-16); IMMATURE GRANULOCYTES 1.1 % (0-5); LYMPHOCYTES 7.7 % (15-50); MCH 27.5 pg (26.0-34.0); MCHC 32.9 g/dL (31.0-37.0); MCV 83.5 fL (80.0-100.0); MEAN PLATELET VOLUME 8.1 fL (7.4-10.4); MONOCYTES 4.3 % (2-11); NEUTROPHILS 86.7 % (40-80); RBC 3.09 10x6/uL (4.00-5.40); RDW 14.8 % (11.5-14.5)
[2017-11-22 05:37] LABS: PLATELET COUNT 468 10x3/uL (130-400); WBC 9.6 10x3/uL (4.8-10.8)
[2017-11-22 05:49] LABS: ALBUMIN 1.4 g/dL (3.4-5.0); ANION GAP 12.5 mmol/L (8-16); BILIRUBIN - TOTAL 0.4 mg/dL (0.2-1.3); CALCIUM 7.3 mg/dL (8.5-10.1); CARBON DIOXIDE 27.9 mmol/L (21.0-32.0); CREATININE - SERUM 1.2 mg/dL (0.6-1.3); POTASSIUM - SERUM 3.4 mmol/L (3.5-5.1); PROTEIN - SERUM 5.3 g/dL (6.4-8.2)
[2017-11-23] VITALS (26 sets, daily range): BP systolic 77–128; BP diastolic 43–90
[2017-11-23 03:52] LABS: BASOPHILS 0.1 % (0-2); EOSINOPHILS 0 % (0-7); IMMATURE GRANULOCYTES 1.2 % (0-5); MCH 28.8 pg (26.0-34.0); MCHC 34.1 g/dL (31.0-37.0); MCV 84.4 fL (80.0-100.0); MEAN PLATELET VOLUME 8.5 fL (7.4-10.4); MONOCYTES 3.2 % (2-11); NEUTROPHILS 90.5 % (40-80); PLATELET COUNT 495 10x3/uL (130-400)
[2017-11-23 04:25] LABS: HEMOGLOBIN 11.6 g/dL (12-16); RBC 4.03 10x6/uL (4.00-5.40)
[2017-11-23 04:28] LABS: ALBUMIN 1.5 g/dL (3.4-5.0); ANION GAP 13.9 mmol/L (8-16); BILIRUBIN - TOTAL 0.5 mg/dL (0.2-1.3); CALCIUM 7.4 mg/dL (8.5-10.1); CARBON DIOXIDE 29.5 mmol/L (21.0-32.0); CREATININE - SERUM 1.1 mg/dL (0.6-1.3); MAGNESIUM - SERUM 2.1 mg/dL (1.8-2.4); PROTEIN - SERUM 6.6 g/dL (6.4-8.2)
[2017-11-23 04:29] LABS: POTASSIUM - SERUM 2.4 mmol/L (3.5-5.1)
[2017-11-23 13:13] LABS: FUNGUS STAIN Final report (())
[2017-11-24] VITALS (24 sets, daily range): BP systolic 92–149; BP diastolic 56–78
[2017-11-24 04:27] LABS: BASOPHILS 0.1 % (0-2); EOSINOPHILS 0 % (0-7); HEMATOCRIT 36.4 % (36.0-48.0); HEMOGLOBIN 12.3 g/dL (12-16); IMMATURE GRANULOCYTES 1.8 % (0-5); LYMPHOCYTES 4.9 % (15-50); MCH 28.9 pg (26.0-34.0); MCHC 33.8 g/dL (31.0-37.0); MCV 85.6 fL (80.0-100.0); MEAN PLATELET VOLUME 8.8 fL (7.4-10.4); MONOCYTES 5.4 % (2-11); NEUTROPHILS 87.8 % (40-80); PLATELET COUNT 580 10x3/uL (130-400); RBC 4.25 10x6/uL (4.00-5.40); RDW 15.3 % (11.5-14.5)
[2017-11-24 04:33] LABS: ANION GAP 14.1 mmol/L (8-16); CALCIUM 7.1 mg/dL (8.5-10.1); CARBON DIOXIDE 27.7 mmol/L (21.0-32.0); CREATININE - SERUM 1.1 mg/dL (0.6-1.3); MAGNESIUM - SERUM 2.1 mg/dL (1.8-2.4); POTASSIUM - SERUM 2.8 mmol/L (3.5-5.1)
[2017-11-25] VITALS (24 sets, daily range): BP systolic 117–159; BP diastolic 69–119
[2017-11-25 05:07] LABS: BASOPHILS 0.1 % (0-2); EOSINOPHILS 0 % (0-7); HEMATOCRIT 33.1 % (36.0-48.0); HEMOGLOBIN 10.7 g/dL (12-16); IMMATURE GRANULOCYTES 1.8 % (0-5); LYMPHOCYTES 3.4 % (15-50); MCH 28.2 pg (26.0-34.0); MCHC 32.3 g/dL (31.0-37.0); MCV 87.3 fL (80.0-100.0); MEAN PLATELET VOLUME 8.8 fL (7.4-10.4); MONOCYTES 3.5 % (2-11); NEUTROPHILS 91.2 % (40-80); PLATELET COUNT 590 10x3/uL (130-400); RBC 3.79 10x6/uL (4.00-5.40); WBC 22.8 10x3/uL (4.8-10.8)
[2017-11-25 05:22] LABS: ANION GAP 15.2 mmol/L (8-16); CALCIUM 8.1 mg/dL (8.5-10.1); CARBON DIOXIDE 26.6 mmol/L (21.0-32.0); CREATININE - SERUM 1.1 mg/dL (0.6-1.3); MAGNESIUM - SERUM 2.4 mg/dL (1.8-2.4); POTASSIUM - SERUM 3.8 mmol/L (3.5-5.1)
[2017-11-25 10:29] LABS: APPEARANCE CLEAR (CLEAR); BILIRUBIN NEGATIVE (NEGATIVE); COLOR YELLOW (YELLOW); GLUCOSE NEGATIVE (NEGATIVE); KETONE NEGATIVE (NEGATIVE); NITRITE NEGATIVE (NEGATIVE); PROTEIN TRACE mg/dL (NEGATIVE); SPECIFIC GRAVITY 1.015 (1.005-1.020); UROBILINOGEN NORMAL (NORMAL)
[2017-11-25 10:30] LABS: WHITE CELLS - URINE OCC /hpf (0-5)
[2017-11-25 10:31] LABS: BACTERIA FEW /hpf (NONE SEEN); EPITHELIAL CELLS 0-5 /hpf (0-5); GRANULAR CAST RARE /lpf (NONE SEEN); MUCUS <1+ /lpf (NONE SEEN)
[2017-11-26] VITALS (24 sets, daily range): BP systolic 112–147; BP diastolic 63–95
[2017-11-26 04:40] LABS: BASOPHILS 0.2 % (0-2); EOSINOPHILS 0 % (0-7); HEMATOCRIT 30.6 % (36.0-48.0); HEMOGLOBIN 9.8 g/dL (12-16); IMMATURE GRANULOCYTES 1.8 % (0-5); LYMPHOCYTES 3.6 % (15-50); MCH 28.4 pg (26.0-34.0); MCV 88.7 fL (80.0-100.0); MEAN PLATELET VOLUME 8.8 fL (7.4-10.4); MONOCYTES 2.6 % (2-11); NEUTROPHILS 91.8 % (40-80); PLATELET COUNT 676 10x3/uL (130-400); RBC 3.45 10x6/uL (4.00-5.40); RDW 16.5 % (11.5-14.5); WBC 33.1 10x3/uL (4.8-10.8)
[2017-11-26 04:42] LABS: ANION GAP 12.9 mmol/L (8-16); CARBON DIOXIDE 29.8 mmol/L (21.0-32.0); CREATININE - SERUM 0.9 mg/dL (0.6-1.3); POTASSIUM - SERUM 3.7 mmol/L (3.5-5.1)
[2017-11-27] VITALS (24 sets, daily range): BP systolic 103–126; BP diastolic 52–76
[2017-11-27 06:10] LABS: ANION GAP 13.7 mmol/L (8-16); CALCIUM 8.3 mg/dL (8.5-10.1); CARBON DIOXIDE 28.3 mmol/L (21.0-32.0); CREATININE - SERUM 1.1 mg/dL (0.6-1.3); MAGNESIUM - SERUM 2.6 mg/dL (1.8-2.4); PHOSPHOROUS 5.1 mg/dL (2.5-4.9)
[2017-11-27 06:14] LABS: BASOPHILS 0.1 % (0-2); EOSINOPHILS 0 % (0-7); HEMATOCRIT 28.8 % (36.0-48.0); IMMATURE GRANULOCYTES 1.7 % (0-5); LYMPHOCYTES 5.5 % (15-50); MCH 28.3 pg (26.0-34.0); MCHC 31.3 g/dL (31.0-37.0); MCV 90.6 fL (80.0-100.0); MEAN PLATELET VOLUME 8.9 fL (7.4-10.4); MONOCYTES 4.1 % (2-11); NEUTROPHILS 88.6 % (40-80); PLATELET COUNT 650 10x3/uL (130-400); RBC 3.18 10x6/uL (4.00-5.40); RDW 16.9 % (11.5-14.5); WBC 27.7 10x3/uL (4.8-10.8)
[2017-11-28] VITALS (32 sets, daily range): BP systolic 103–161; BP diastolic 53–93
[2017-11-28 05:29] LABS: BASOPHILS 0 % (0-2); EOSINOPHILS 0 % (0-7); HEMATOCRIT 25.9 % (36.0-48.0); HEMOGLOBIN 8.1 g/dL (12-16); IMMATURE GRANULOCYTES 1.4 % (0-5); LYMPHOCYTES 3.8 % (15-50); MCH 28.4 pg (26.0-34.0); MCHC 31.3 g/dL (31.0-37.0); MCV 90.9 fL (80.0-100.0); MEAN PLATELET VOLUME 8.6 fL (7.4-10.4); MONOCYTES 4.1 % (2-11); NEUTROPHILS 90.7 % (40-80); PLATELET COUNT 595 10x3/uL (130-400); RBC 2.85 10x6/uL (4.00-5.40); RDW 16.6 % (11.5-14.5); WBC 26.6 10x3/uL (4.8-10.8)
[2017-11-28 05:42] LABS: ALBUMIN 1.9 g/dL (3.4-5.0); ANION GAP 12.8 mmol/L (8-16); BILIRUBIN - TOTAL 0.7 mg/dL (0.2-1.3); CALCIUM 8.4 mg/dL (8.5-10.1); CARBON DIOXIDE 28.2 mmol/L (21.0-32.0); CREATININE - SERUM 1.1 mg/dL (0.6-1.3); MAGNESIUM - SERUM 2.2 mg/dL (1.8-2.4); PHOSPHOROUS 4.2 mg/dL (2.5-4.9); PROTEIN - SERUM 5.6 g/dL (6.4-8.2)
[2017-11-28 07:52] LABS: % SATURATION 26 % (15-55); IRON 60 ug/dl (35-150); TOTAL IRON BIND CAPACITY 230 ug/dl (260-445); UNSAT IRON BIND CAPACITY 170 ug/dl (150-375)
[2017-11-29] VITALS (11 sets, daily range): BP systolic 142–163; BP diastolic 73–100
[2017-11-29 04:22] LABS: BASOPHILS 0 % (0-2); EOSINOPHILS 0 % (0-7); HEMATOCRIT 25.9 % (36.0-48.0); IMMATURE GRANULOCYTES 1.2 % (0-5); LYMPHOCYTES 4.4 % (15-50); MCH 28.2 pg (26.0-34.0); MCHC 30.9 g/dL (31.0-37.0); MCV 91.2 fL (80.0-100.0); MEAN PLATELET VOLUME 8.5 fL (7.4-10.4); MONOCYTES 3.7 % (2-11); NEUTROPHILS 90.7 % (40-80); PLATELET COUNT 548 10x3/uL (130-400); RBC 2.84 10x6/uL (4.00-5.40); RDW 16.2 % (11.5-14.5); WBC 23.1 10x3/uL (4.8-10.8)
[2017-11-29 04:35] LABS: ALBUMIN 1.9 g/dL (3.4-5.0); ANION GAP 10.5 mmol/L (8-16); BILIRUBIN - TOTAL 0.93 mg/dL (0.2-1.3); CALCIUM 8.1 mg/dL (8.5-10.1); CARBON DIOXIDE 29.6 mmol/L (21.0-32.0); PHOSPHOROUS 3.9 mg/dL (2.5-4.9); POTASSIUM - SERUM 4.1 mmol/L (3.5-5.1); PROTEIN - SERUM 5.4 g/dL (6.4-8.2)
[2017-11-29 04:40] LABS: CREATININE - SERUM 0.8 mg/dL (0.6-1.3)
[2017-11-30 00:58] VITALS: BP 124/60
[2017-11-30 04:05] VITALS: BP 155/72
[2017-11-30 06:22] LABS: ALBUMIN 1.8 g/dL (3.4-5.0); ALKALINE PHOSPHATASE 57 U/L (46-116); ALT (SGPT) 91 U/L (10-68); BILIRUBIN - TOTAL 0.96 mg/dL (0.2-1.3); CALCIUM 8.5 mg/dL (8.5-10.1); CARBON DIOXIDE 31.4 mmol/L (21.0-32.0); CHLORIDE - SERUM 102 mmol/L (98-107); CREATININE - SERUM 0.7 mg/dL (0.6-1.3); PROTEIN - SERUM 5.4 g/dL (6.4-8.2); SODIUM 140 mmol/L (136-145); UREA NITROGEN 22 mg/dL (7-18); eGFR NON AFRICAN AMERICAN 87 mL/min (90-120)
[2017-11-30 06:30] LABS: CALC OSMOLALITY 281 mosm/kg (275-300); GLUCOSE 102 mg/dL (74-106)
[2017-11-30 06:43] LABS: BASOPHILS 0.1 % (0-2); EOSINOPHILS 0 % (0-7); HEMATOCRIT 25.4 % (36.0-48.0); HEMOGLOBIN 7.9 g/dL (12-16); IMMATURE GRANULOCYTES 0.7 % (0-5); LYMPHOCYTES 3.6 % (15-50); MCH 27.8 pg (26.0-34.0); MCHC 31.1 g/dL (31.0-37.0); MCV 89.4 fL (80.0-100.0); MEAN PLATELET VOLUME 8.5 fL (7.4-10.4); MONOCYTES 4.9 % (2-11); NEUTROPHILS 90.7 % (40-80); PLATELET COUNT 546 10x3/uL (130-400); RBC 2.84 10x6/uL (4.00-5.40); RDW 16.2 % (11.5-14.5); WBC 18.9 10x3/uL (4.8-10.8)
[2017-11-30 08:25] VITALS: BP 154/70
[2017-11-30 11:14] LABS: FOLATE (FOLIC ACID) - SERUM 10.3 ng/mL (>3.0)
[2017-11-30 13:22] VITALS: BP 127/54
[2017-11-30 16:55] VITALS: BP 140/64
[2017-11-30 20:00] VITALS: BP 142/58
[2017-12-01 00:18] VITALS: BP 151/75
[2017-12-01 04:10] VITALS: BP 129/64
[2017-12-01 05:13] LABS: BASOPHILS 0 % (0-2); EOSINOPHILS 0.4 % (0-7); HEMATOCRIT 25.7 % (36.0-48.0); HEMOGLOBIN 8.2 g/dL (12-16); IMMATURE GRANULOCYTES 0.8 % (0-5); LYMPHOCYTES 4.1 % (15-50); MCH 28.2 pg (26.0-34.0); MCHC 31.9 g/dL (31.0-37.0); MCV 88.3 fL (80.0-100.0); MEAN PLATELET VOLUME 8.3 fL (7.4-10.4); MONOCYTES 4.7 % (2-11); PLATELET COUNT 493 10x3/uL (130-400); RBC 2.91 10x6/uL (4.00-5.40); RDW 16.1 % (11.5-14.5); WBC 17.6 10x3/uL (4.8-10.8)
[2017-12-01 05:34] LABS: CALCIUM 8.2 mg/dL (8.5-10.1); CARBON DIOXIDE 30.7 mmol/L (21.0-32.0); CHLORIDE - SERUM 102 mmol/L (98-107); CREATININE - SERUM 0.6 mg/dL (0.6-1.3); GLUCOSE 86 mg/dL (74-106); SODIUM 140 mmol/L (136-145); eGFR NON AFRICAN AMERICAN > 90 mL/min (90-120)
[2017-12-01 05:53] LABS: CALC OSMOLALITY 278 mosm/kg (275-300); POTASSIUM - SERUM 3.1 mmol/L (3.5-5.1); UREA NITROGEN 15 mg/dL (7-18)
[2017-12-01 08:28] VITALS: BP 134/63
[2017-12-01 16:35] VITALS: BP 122/60
[2017-12-01 19:15] VITALS: BP 154/69
[2017-12-01 20:00] VITALS: BP 149/71
[2017-12-02] VITALS: BP 129/61
[2017-12-02 04:01] VITALS: BP 124/64
[2017-12-02 06:36] LABS: BASOPHILS 0.1 % (0-2); EOSINOPHILS 0.2 % (0-7); HEMATOCRIT 27.5 % (36.0-48.0); HEMOGLOBIN 8.8 g/dL (12-16); IMMATURE GRANULOCYTES 0.6 % (0-5); LYMPHOCYTES 3.1 % (15-50); MCH 28.3 pg (26.0-34.0); MCV 88.4 fL (80.0-100.0); MEAN PLATELET VOLUME 8.3 fL (7.4-10.4); MONOCYTES 5.2 % (2-11); NEUTROPHILS 90.8 % (40-80); PLATELET COUNT 490 10x3/uL (130-400); RBC 3.11 10x6/uL (4.00-5.40); RDW 16.4 % (11.5-14.5)
[2017-12-02 06:46] LABS: CALC OSMOLALITY 275 mosm/kg (275-300); CALCIUM 8.5 mg/dL (8.5-10.1); CHLORIDE - SERUM 101 mmol/L (98-107); CREATININE - SERUM 0.6 mg/dL (0.6-1.3); GLUCOSE 85 mg/dL (74-106); SODIUM 138 mmol/L (136-145); UREA NITROGEN 15 mg/dL (7-18); eGFR NON AFRICAN AMERICAN > 90 mL/min (90-120)
[2017-12-02 06:48] LABS: POTASSIUM - SERUM 3.6 mmol/L (3.5-5.1)
[2017-12-02 08:34] VITALS: BP 148/60
[2017-12-02 12:25] VITALS: BP 140/80
[2017-12-02 15:28] VITALS: BP 128/70
[2017-12-02 20:00] VITALS: BP 139/73
[2017-12-03 00:08] VITALS: BP 159/70
[2017-12-03 03:45] VITALS: BP 131/67
[2017-12-03 05:51] LABS: BASOPHILS 0 % (0-2); EOSINOPHILS 0.9 % (0-7); HEMOGLOBIN 9.2 g/dL (12-16); IMMATURE GRANULOCYTES 0.7 % (0-5); LYMPHOCYTES 4.4 % (15-50); MCHC 31.7 g/dL (31.0-37.0); MCV 88.1 fL (80.0-100.0); MEAN PLATELET VOLUME 8.5 fL (7.4-10.4); MONOCYTES 6.1 % (2-11); NEUTROPHILS 87.9 % (40-80); PLATELET COUNT 460 10x3/uL (130-400); RBC 3.29 10x6/uL (4.00-5.40); RDW 16.6 % (11.5-14.5); WBC 14.7 10x3/uL (4.8-10.8)
[2017-12-03 06:17] LABS: CALC OSMOLALITY 269 mosm/kg (275-300); CALCIUM 8.6 mg/dL (8.5-10.1); CARBON DIOXIDE 29.3 mmol/L (21.0-32.0); CHLORIDE - SERUM 97 mmol/L (98-107); CREATININE - SERUM 0.7 mg/dL (0.6-1.3); GLUCOSE 101 mg/dL (74-106); SODIUM 135 mmol/L (136-145); UREA NITROGEN 13 mg/dL (7-18); eGFR NON AFRICAN AMERICAN 87 mL/min (90-120)
[2017-12-03 08:52] VITALS: BP 117/61
[2017-12-03 12:22] VITALS: BP 82/45
[2017-12-03 15:51] VITALS: BP 94/59
[2017-12-03 20:00] VITALS: BP 94/46
[2017-12-04 01:20] VITALS: BP 108/56
[2017-12-04 05:00] LABS: BASOPHILS 0.1 % (0-2); EOSINOPHILS 1.3 % (0-7); HEMATOCRIT 28.8 % (36.0-48.0); HEMOGLOBIN 9.1 g/dL (12-16); IMMATURE GRANULOCYTES 0.6 % (0-5); LYMPHOCYTES 5.6 % (15-50); MCHC 31.6 g/dL (31.0-37.0); MCV 88.6 fL (80.0-100.0); MEAN PLATELET VOLUME 8.7 fL (7.4-10.4); MONOCYTES 7.4 % (2-11); PLATELET COUNT 431 10x3/uL (130-400); RBC 3.25 10x6/uL (4.00-5.40); RDW 17.1 % (11.5-14.5); WBC 14.4 10x3/uL (4.8-10.8)
[2017-12-04 05:16] LABS: CALCIUM 8.9 mg/dL (8.5-10.1); CARBON DIOXIDE 28.8 mmol/L (21.0-32.0); CREATININE - SERUM 0.8 mg/dL (0.6-1.3); POTASSIUM - SERUM 3.8 mmol/L (3.5-5.1)
[2017-12-04 05:27] VITALS: BP 121/57
[2017-12-04 08:58] VITALS: BP 107/56
[2017-12-04 12:45] VITALS: BP 106/47
[2017-12-04 16:46] VITALS: BP 100/56
[2017-12-04 20:00] VITALS: BP 95/53
[2017-12-05] VITALS: BP 102/52
[2017-12-05 04:00] VITALS: BP 116/48
[2017-12-05 05:17] LABS: BASOPHILS 0 % (0-2); EOSINOPHILS 1.9 % (0-7); HEMOGLOBIN 7.6 g/dL (12-16); IMMATURE GRANULOCYTES 0.5 % (0-5); LYMPHOCYTES 6.5 % (15-50); MCH 28.5 pg (26.0-34.0); MCHC 31.7 g/dL (31.0-37.0); MCV 89.9 fL (80.0-100.0); MEAN PLATELET VOLUME 8.4 fL (7.4-10.4); MONOCYTES 7.1 % (2-11); RBC 2.67 10x6/uL (4.00-5.40); RDW 17.1 % (11.5-14.5); WBC 10.9 10x3/uL (4.8-10.8)
[2017-12-05 05:23] LABS: PLATELET COUNT 343 10x3/uL (130-400)
[2017-12-05 05:28] LABS: ANION GAP 10.9 mmol/L (8-16); CALCIUM 8.4 mg/dL (8.5-10.1); CARBON DIOXIDE 25.7 mmol/L (21.0-32.0); CREATININE - SERUM 0.8 mg/dL (0.6-1.3); POTASSIUM - SERUM 3.6 mmol/L (3.5-5.1)
[2017-12-05 09:13] LABS: ACID FAST CULTURE Positive (())
[2017-12-05 12:30] VITALS: BP 108/54
[2017-12-05 16:24] LABS: HEMATOCRIT 26.9 % (36.0-48.0); HEMOGLOBIN 8.4 g/dL (12-16)
[2017-12-05 16:45] VITALS: BP 150/72; BP 99/54
[2017-12-05 20:00] VITALS: BP 95/42
[2017-12-06] VITALS: BP 92/43
[2017-12-06 04:00] VITALS: BP 99/55
[2017-12-06 06:39] LABS: BASOPHILS 0.1 % (0-2); EOSINOPHILS 1.5 % (0-7); HEMATOCRIT 26.4 % (36.0-48.0); HEMOGLOBIN 8.1 g/dL (12-16); IMMATURE GRANULOCYTES 0.5 % (0-5); LYMPHOCYTES 7.9 % (15-50); MCH 27.9 pg (26.0-34.0); MCHC 30.7 g/dL (31.0-37.0); MEAN PLATELET VOLUME 8.6 fL (7.4-10.4); MONOCYTES 6.3 % (2-11); NEUTROPHILS 83.7 % (40-80); PLATELET COUNT 367 10x3/uL (130-400); RDW 17.4 % (11.5-14.5); WBC 10.7 10x3/uL (4.8-10.8)
[2017-12-06 06:55] LABS: ANION GAP 8.9 mmol/L (8-16); CALCIUM 8.7 mg/dL (8.5-10.1); CARBON DIOXIDE 27.9 mmol/L (21.0-32.0); CREATININE - SERUM 0.9 mg/dL (0.6-1.3); POTASSIUM - SERUM 3.8 mmol/L (3.5-5.1)
[2017-12-06 08:43] VITALS: BP 113/59
[2017-12-06 11:38] VITALS: BP 94/41
[2017-12-06 15:42] VITALS: BP 83/47
[2017-12-06 16:09] LABS: % SATURATION 12 % (15-55); IRON 29 ug/dl (35-150); TOTAL IRON BIND CAPACITY 240 ug/dl (260-445); UNSAT IRON BIND CAPACITY 211 ug/dl (150-375)
[2017-12-06 16:13] LABS: HEMATOCRIT 26.3 % (36.0-48.0); HEMOGLOBIN 8.3 g/dL (12-16)
[2017-12-06 16:55] LABS: ALBUMIN 1.8 g/dL (3.4-5.0); ANION GAP 11.8 mmol/L (8-16); BILIRUBIN - TOTAL 0.57 mg/dL (0.2-1.3); CALCIUM 8.5 mg/dL (8.5-10.1); CARBON DIOXIDE 27.3 mmol/L (21.0-32.0); CREATININE - SERUM 0.8 mg/dL (0.6-1.3); POTASSIUM - SERUM 4.1 mmol/L (3.5-5.1); PROTEIN - SERUM 5.9 g/dL (6.4-8.2)
[2017-12-06 20:13] VITALS: BP 107/52
[2017-12-07] VITALS (7 sets, daily range): BP systolic 88–112; BP diastolic 45–60
[2017-12-07 04:22] LABS: BASOPHILS 0.1 % (0-2); EOSINOPHILS 1.7 % (0-7); HEMATOCRIT 24.4 % (36.0-48.0); HEMOGLOBIN 7.7 g/dL (12-16); IMMATURE GRANULOCYTES 0.4 % (0-5); LYMPHOCYTES 8.2 % (15-50); MCH 28.3 pg (26.0-34.0); MCHC 31.6 g/dL (31.0-37.0); MCV 89.7 fL (80.0-100.0); MEAN PLATELET VOLUME 8.4 fL (7.4-10.4); MONOCYTES 5.9 % (2-11); NEUTROPHILS 83.7 % (40-80); PLATELET COUNT 339 10x3/uL (130-400); RBC 2.72 10x6/uL (4.00-5.40); WBC 10.9 10x3/uL (4.8-10.8)
[2017-12-07 04:35] LABS: CALC OSMOLALITY 269 mosm/kg (275-300); CALCIUM 8.5 mg/dL (8.5-10.1); CARBON DIOXIDE 26.4 mmol/L (21.0-32.0); CHLORIDE - SERUM 99 mmol/L (98-107); CREATININE - SERUM 0.6 mg/dL (0.6-1.3); GLUCOSE 98 mg/dL (74-106); POTASSIUM - SERUM 3.8 mmol/L (3.5-5.1); SODIUM 134 mmol/L (136-145); UREA NITROGEN 17 mg/dL (7-18); eGFR NON AFRICAN AMERICAN > 90 mL/min (90-120)
[2017-12-07 09:50] LABS: PATH REVIEW PERIPHERAL SMEAR REVIEWED
[2017-12-07] MEDS ORDERED: ULTRAM50 MG PO (11:54)
[2017-12-07] MEDS ORDERED: PLAVIX75 MG PO (11:55)
[2017-12-07] MEDS ORDERED: PROTONIX40 MG PO (11:55)
[2017-12-07] MEDS ORDERED: LOVENOX30 MG/0.3 SC (11:55)
[2017-12-07] MEDS ORDERED: ZETIA10 MG PO (11:55)
[2017-12-07] MEDS ORDERED: HCTZ25 MG PO (11:55)
[2017-12-07] MEDS ORDERED: MYAMBUTOL400 MG PO (11:55)
[2017-12-07] MEDS ORDERED: CARAFATE1 G/10 ML PO (11:55)
[2017-12-07] MEDS ORDERED: BETAPACE 120 M120 MG PO (11:55)
[2017-12-07] MEDS ORDERED: FLORAJEN3 CAPS460 MG PO (11:55)
[2017-12-07] MEDS ORDERED: ATROVENT 0.02%2.5 ML UPD (11:55)
[2017-12-07] MEDS ORDERED: PEPCID20 MG PO (11:55)
[2017-12-07] MEDS ORDERED: BROVANA15 MCG/2 M INH (11:55)
[2017-12-07] MEDS ORDERED: DIOVAN80 MG PO (11:55)
[2017-12-07] MEDS ORDERED: ACETAMINOPHEN500 M1 PO (11:55)
[2017-12-07] MEDS ORDERED: ZITHROMAX250 MG PO (11:55)
[2017-12-07] MEDS ORDERED: MEGACE400 MG/10 PO (11:55)
[2017-12-07] MEDS ORDERED: MIRALAX17 GM PO (11:55)
[2017-12-07] MEDS ORDERED: SINGULAIR10 MG PO (11:55)
[2017-12-07] MEDS ORDERED: NYSTATIN ORAL SU5 ML PO (11:55)
[2017-12-07] MEDS ORDERED: SENOKOT-S TABLE1 TAB PO (11:55)
[2017-12-07] MEDS ORDERED: ASPIRIN81 MG GT (11:55)
[2017-12-07] MEDS ORDERED: XOPENEX 0.0.63 MG/3 INH (11:55)
[2017-12-07 18:08] LABS: ACID FAST SMEAR Negative (()); M TUBERCULOSIS Negative (())
[2017-12-08 08:19] LABS: FOLATE (FOLIC ACID) - SERUM 7.5 ng/mL (>3.0)
[2017-12-23 14:11] LABS: AMIKACIN 8.0 ug/mL (())
[2017-12-24 13:13] LABS: FUNGUS MYCOLOGY CULTURE Final report (())
== END 2017-12-07 15:42 | DRG 981 ==
LOC: D.ICU 10:41 → D.MS 10:41 → D.ICU 11-19 07:38 → D.MS 11-29 12:22
PROVIDERS: Family Medicine; Internal Medicine Interventional Cardiology; Internal Medicine Medical Oncology; Internal Medicine Pulmonary Disease; Student in an Organized Health Care Education/Training Program
PROC: 5A1955Z Respiratory Ventilation, Greater than 96 Consecutive Hours (ICD-10-PCS; 2017-11-20)
PROC: 0B978ZZ Drainage of Left Main Bronchus, Via Natural or Artificial Opening Endoscopic (ICD-10-PCS; 2017-11-20)
PROC: 0B938ZZ Drainage of Right Main Bronchus, Via Natural or Artificial Opening Endoscopic (ICD-10-PCS; 2017-11-20)
PROC: B2151ZZ Fluoroscopy of Left Heart using Low Osmolar Contrast (ICD-10-PCS; 2017-11-20)
PROC: 4A023N7 Measurement of Cardiac Sampling and Pressure, Left Heart, Percutaneous Approach (ICD-10-PCS; 2017-11-20)
PROC: 0BH17EZ Insertion of Endotracheal Airway into Trachea, Via Natural or Artificial Opening (ICD-10-PCS; principal; 2017-11-20 11:30)
PROC: 027105Z Dilation of Coronary Artery, Two Arteries with Two Drug-eluting Intraluminal Devices, Open Approach (ICD-10-PCS; 2017-11-20 11:30)
PROC: 02HV33Z Insertion of Infusion Device into Superior Vena Cava, Percutaneous Approach (ICD-10-PCS; 2017-11-23)
PROC: B548ZZA Ultrasonography of Superior Vena Cava, Guidance (ICD-10-PCS; 2017-11-23)
DX: A31.0 Pulmonary mycobacterial infection (principal); I21.9 Acute myocardial infarction, unspecified; J96.01 Acute respiratory failure with hypoxia; A41.9 Sepsis, unspecified organism; R65.21 Severe sepsis with septic shock; R57.0 Cardiogenic shock; I50.21 Acute systolic (congestive) heart failure; E87.1 Hypo-osmolality and hyponatremia; J45.901 Unspecified asthma with (acute) exacerbation; K92.1 Melena; D62 Acute posthemorrhagic anemia; E87.0 Hyperosmolality and hypernatremia; J18.9 Pneumonia, unspecified organism; K21.9 Gastro-esophageal reflux disease without esophagitis; E78.5 Hyperlipidemia, unspecified; I25.10 Atherosclerotic heart disease of native coronary artery without angina pectoris; Z95.0 Presence of cardiac pacemaker; I25.5 Ischemic cardiomyopathy; E87.6 Hypokalemia; I11.0 Hypertensive heart disease with heart failure; I27.20 Pulmonary hypertension, unspecified; E83.39 Other disorders of phosphorus metabolism; E83.41 Hypermagnesemia

== ENCOUNTER 2017-12-07 14:56 | Inpatient (IN) | payer MEDICARE, OTHER ==
[~2017-12-07] VITALS: Ht 162.6 cm; Wt 40.8 kg
--- NOTE | ~2017-12-07 | RHP ---
PATIENT: RL BROOKS MEDICAL RECORD: [id number] ACCOUNT: [id number] LOCATION:[id number] : 45 ADMISSION DATE: 12/07/17 REHABILITATION HISTORY AND PHYSICAL EXAMINATION POST ADMISSION PHYSICIAN EXAMINATION DATE OF ADMISSION: 12/07/2017. ADMITTING DIAGNOSIS: Critical illness myopathy. HISTORY OF PRESENT ILLNESS: The patient admitted to the inpatient rehab for neurological condition, critical illness myopathy. She is a 72-year-old female patient with longstanding history of having breathing problems cared by [facility] for Mycobacterium avium, chronic condition. She was treated with daily azithromycin as well as ethambutol. The patient has failed home therapy with worsening systems a week prior to her acute hospital admit. On 11/09/2017, she had fevers, chills, sweats and green sputum production. She was admitted for pneumonia, was also found to have evidence of congestive heart failure and fluid overload. Echocardiogram showed regional wall motion abnormalities in anterior distribution consistent with prior myocardial infarction. She underwent a cardiac catheterization and cath stents placed on 11/20/2017. Her respiratory function has progressively worsened during the acute hospital stay requiring mechanical ventilation on 11/20/2017 to 11/25/2017. While on the ventilator, she started having diarrhea and rectal tube was placed. On 11/22/2017, she was having bright red blood per rectum, had a GI consult and has been followed throughout her stay. She received 1 unit of packed red blood cells on 11/22/2017. She was in the ICU from 11/19/2017 to 11/29/2017. She is currently on 2 liters of nasal cannula oxygen. She has been incontinent of bowel and bladder recently. She is very weak, debilitated due to prolonged hospitalization, has got new onset of oropharyngeal dysphagia, speech disturbance post-extubation, dysarthria, and is being followed by speech therapy. She lives at home with her working approximately 3 days a week and driving prior to this hospitalization. She was independent with ADLs and mobility. She is currently moderate assist to total assist for ADLs and max assist to total assist for mobility. She has a strong family support system and plans to return home at her prior level of function or better. COMORBIDITIES: Include oropharyngeal dysphagia, acute hypoxic respiratory failure, bilateral infiltrates, Aspergillus infection, possible ARDS, nontuberculous Mycobacterium infection, moderate pulmonary hypertension, left upper lobe granuloma, AFib with rapid ventricular response, acute cough, leukocytosis, gastroesophageal reflux disease, hyperphosphatemia, hypermagnesemia, hypernatremia, prerenal azotemia, hematochezia, debility, acute bacterial pneumonia, COPD, vitamin D deficiency, perirectal pain, depression, ischemic cardiomyopathy, and rectal bleeding. PAST MEDICAL HISTORY: Significant for hypertension, Aspergillus lung infection, Mycobacterial avium intracellulare, vitamin D deficiency, anemia, depression, coronary artery disease, atrial fib, asthma, chronic cough, apnea, arthritis, chronic back pain, fibromyalgia, menopause, acid reflux, borderline anemia, and hyperlipidemia. PAST SURGICAL HISTORY: Includes hysterectomy, bladder repair and sling, nephrectomy, angioplasty with 3 stents, pacemaker placement, appendectomy, and elective cardioversion. HISTORY AND PHYSICAL [id number] RL BROOKS ALLERGIES: TICLID. CURRENT MEDICATIONS: Include DuoNeb updrafts t.i.d., Diovan 320 daily, Senokot daily, polyethylene glycol 17 grams in 8 ounces of water daily, Protonix 40 mg b.i.d., Megace 400 mg daily, Floranex 460 mg daily, hydrochlorothiazide 12.5 mg daily, Zetia 10 mg daily, ethambutol 800 mg daily. She is on enoxaparin 30 mg subq daily, Plavix 75 mg daily, aspirin chewable 81 mg daily, Ultram 50 mg daily, Carafate 1 g q.a.c. and q.h.s., sotalol 120 mg b.i.d., nystatin suspension 5 cc q.i.d., Singulair 10 mg q.h.s., Xopenex p.r.n. wheezing. She is on Pepcid 20 mg q.h.s., Brovana 15 mcg b.i.d., Tylenol 1000 mg q.8 hours p.r.n. She is on a low resistant sliding scale of insulin and she is on sodium chloride lock at this time. HABITS: No current alcohol or tobacco use. FAMILY HISTORY: Noncontributory. SOCIAL HISTORY: The patient hopes to return back to home and get back to her prior level of function. REVIEW OF SYSTEMS: GENERAL: Does complain of weakness and fatigue. HEENT: Does complain of cold, cough, and congestion. CARDIOVASCULAR: Denies any chest pain. LUNGS: Does complain of shortness of breath. PHYSICAL EXAMINATION: VITAL SIGNS: Stable, afebrile. GENERAL: A very thin, cachectic white female in no acute distress, alert upon exam. HEENT: Normocephalic and atraumatic. Mucosa moist. NECK: Supple. No adenopathy. LUNGS: Coarse breath sounds bilaterally. HEART: Irregular rate and rhythm. ABDOMEN: Benign. EXTREMITIES: No clubbing, cyanosis or edema. NEUROLOGIC: She does have proximal muscle weakness. LABORATORY DATA: White count is 8.5, H&H of 10 and 31, and platelet count is noted to be 225. Sodium 133, potassium 4.0, BUN and creatinine of 14 and 0.6, and blood sugar is noted to be 87. ASSESSMENT: This is a 72-year-old female patient admitted to the rehab with a working diagnosis of critical illness myopathy secondary to her prolonged hospitalization, ICU stay, and Mycobacterium avium intracellulare. The patient has potential to make improvement. We instituted the following multidisciplinary therapies include, but not limited to physical, occupational, respiratory, speech, nutritional services, prosthetics and orthotics. Given her complex medical condition and risk for more complications, rehabilitation services cannot be provided at a low level of care such a [facility] facility. PLAN: 1. Admit to [facility] for intensive inpatient therapy to HISTORY AND PHYSICAL [id number] RL BROOKS include the following disciplines: A. Physical therapy to improve gait, all transfer skills and bed mobility to a modified independent level. B. Occupational therapy to improve activities of daily living to a modified independent level. C. Case management to assist with discharge planning and placement options. D. Nutrition to assist with nutritional needs. E. Rehabilitation nursing to assist with monitoring the patient's underlying medical condition and to assist with any type of bowel or bladder management. 2. The patient's current medication and medical care will be continued. 3. The patient will be placed on standard fall precautions. 4. The patient's estimated length of stay is approximately 7-10 days. 5. Discuss this patient during care team staff meeting this week, which will be on Thursday. TRANSINT:[id number] Voice Confirmation ID: [id number] DOCUMENT ID: [id number] DESMOND notes whether there has been none or any medical/functional change since admission: - No change since the PAS DESMOND attests patient continues to be appropriate for IRF: - Remains appropriate for the IRF JUNIOR COTA MD at 1438 CC: [id number] DICTATION DATE: 12/08/17 1556 NYLON MENDER: 12/08/17 1627 ADM IN [facility] [address] [id number]
--- NOTE | ~2017-12-07 | CN ---
PATIENT NAME:RL BROOKS MEDICAL RECORD: [id number] : 45 LOCATION:[facility]10 ADMIT DATE: 12/07/17 ACCOUNT: [id number] CONSULTING PHYSICIAN: ASIA VILLARREAL MD REFERRING PHYSICIAN: JUNIOR COTA MD DATE OF CONSULTATION: 12/17/2017 IDENTIFYING DATA: The patient is 72 years old and she is admitted to the hospital for rehabilitative purposes. CHIEF COMPLAINT: None. HISTORY OF PRESENT ILLNESS: The patient is being seen because her family has requested a psychiatrist see her. Apparently, they are concerned about her mental status. The patient is willing to talk with me and does so freely, but she does not really think she needs a psychiatrist. She apparently has never seen a psychiatrist and I can tell from the context that she views that as something of stigma to speak to one. She is nevertheless very cooperative and forthcoming in giving information. I had already reviewed her medical record and she restated the pertinent basic facts which do not require restating again, but the situation is that she has had a series of medical problems that have resulted in her being incapacitated or partially incapacitated for a long time. She feels frustrated with her health situation and because she has been away from [employer] which is her employer for a long time, she now has been replaced. She is upset about this. 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 Again, she endorses numerous depressive symptoms, but denies that she would seek to harm herself or others. MENTAL STATUS EXAMINATION: The patient is awake, alert and oriented to person, place and basically to time and situation. She is very mildly mistaken about the date. Her mood is depressed. Her affect is constricted. Thought processes are goal directed. Memory, concentration, and abstraction abilities are mildly impaired. She denies any intent to harm herself or others as well as overt psychotic symptoms. ASSESSMENT: 1. Major depression, single episode, moderate severity without psychotic features. 2. Rule out dementia. PLAN: At this time, the patient is clearly depressed. The depression appears to be related to life circumstances specifically a series of medical setbacks that have occurred in recent months. She denies any history of psychiatric treatment or problems. She denies a history of substance abuse. I recommended a low dose of an antidepressant medication and with some reluctance, she is willing to give it a try. I would recommend Zoloft at a dose of 50 mg daily as a therapeutic trial for 4 weeks. In addition to this, once the patient is stronger better away from home, I would recommend she be tested by Dr. Ada Villanueva in case the mild cognitive symptoms I saw are related to an underlying dementing process and not just a woman who has been hospitalized a lot and is depressed. I do not see any evidence of acute or direct dangerousness. There are certainly no reason for her to necessarily follow up with the psychiatrist after being discharged. CONSULT REPORT [id number] RL BROOKS TRANSINT:[id number] Voice Confirmation ID: [id number] DOCUMENT ID: [id number] ASIA VILLARREAL MD at 1312 CC: [id number] DICTATION DATE: 12/17/17 1426 HEALTH AND SAFETY MANAGER: 12/17/17 1511 ADM IN [id number] [place] [address]
[~2017-12-07 14:56] MED LIST: ACETAMINOPHEN500 M1 PO; AMBIEN5 MG PO; ASPIRIN81 MG GT; ATROVENT 0.02%2.5 ML UPD; BETAPACE 120 M120 MG PO; BROVANA15 MCG/2 M INH; CARAFATE1 G/10 ML PO; DIOVAN80 MG PO; FLORAJEN3 CAPS460 MG PO; HCTZ25 MG PO; LOTREL 5-40 MG1 EACH; LOVENOX30 MG/0.3 SC; MEGACE400 MG/10 PO; MIRALAX17 GM PO; MYAMBUTOL400 MG PO; NYSTATIN ORAL SU5 ML PO; PEPCID20 MG PO; PLAVIX75 MG PO; PROTONIX40 MG PO; SENOKOT-S TABLE1 TAB PO; SINGULAIR10 MG PO; ULTRAM50 MG PO; XOPENEX 0.0.63 MG/3 INH; ZETIA10 MG PO; ZITHROMAX250 MG PO
[2017-12-07 16:19] VITALS: BP 113/52
[2017-12-07 22:43] VITALS: BP 126/74
[2017-12-08 06:33] LABS: BASOPHILS 0.1 % (0-2); EOSINOPHILS 2.2 % (0-7); IMMATURE GRANULOCYTES 0.4 % (0-5); LYMPHOCYTES 9.1 % (15-50); MCH 29.6 pg (26.0-34.0); MCHC 32.9 g/dL (31.0-37.0); MCV 89.9 fL (80.0-100.0); MEAN PLATELET VOLUME 8.3 fL (7.4-10.4); MONOCYTES 6.6 % (2-11); NEUTROPHILS 81.6 % (40-80); RDW 15.6 % (11.5-14.5); WBC 8.5 10x3/uL (4.8-10.8)
[2017-12-08 06:34] LABS: HEMOGLOBIN 10.2 g/dL (12-16); PLATELET COUNT 225 10x3/uL (130-400); RBC 3.45 10x6/uL (4.00-5.40)
[2017-12-08 07:07] LABS: CALC OSMOLALITY 265 mosm/kg (275-300); CALCIUM 8.6 mg/dL (8.5-10.1); CARBON DIOXIDE 27.2 mmol/L (21.0-32.0); CHLORIDE - SERUM 100 mmol/L (98-107); CREATININE - SERUM 0.6 mg/dL (0.6-1.3); GLUCOSE 87 mg/dL (74-106); SODIUM 133 mmol/L (136-145); UREA NITROGEN 14 mg/dL (7-18); eGFR NON AFRICAN AMERICAN > 90 mL/min (90-120)
[2017-12-08 08:00] VITALS: BP 99/47
[2017-12-08 09:34] VITALS: Ht 162.6 cm; Wt 40.8 kg
[2017-12-08 19:00] VITALS: BP 107/45
[2017-12-09 04:36] LABS: BASOPHILS 0.2 % (0-2); HEMATOCRIT 29.7 % (36.0-48.0); HEMOGLOBIN 10.4 g/dL (12-16); IMMATURE GRANULOCYTES 0.5 % (0-5); LYMPHOCYTES 10.8 % (15-50); MCH 31.3 pg (26.0-34.0); MCV 89.5 fL (80.0-100.0); MEAN PLATELET VOLUME 8.5 fL (7.4-10.4); MONOCYTES 4.8 % (2-11); NEUTROPHILS 81.7 % (40-80); PLATELET COUNT 239 10x3/uL (130-400); RBC 3.32 10x6/uL (4.00-5.40); RDW 15.6 % (11.5-14.5); WBC 9.6 10x3/uL (4.8-10.8)
[2017-12-09 04:43] LABS: CALC OSMOLALITY 259 mosm/kg (275-300); CALCIUM 8.8 mg/dL (8.5-10.1); CARBON DIOXIDE 28.5 mmol/L (21.0-32.0); CHLORIDE - SERUM 99 mmol/L (98-107); CREATININE - SERUM 0.6 mg/dL (0.6-1.3); GLUCOSE 101 mg/dL (74-106); POTASSIUM - SERUM 4.6 mmol/L (3.5-5.1); SODIUM 129 mmol/L (136-145); UREA NITROGEN 16 mg/dL (7-18); eGFR NON AFRICAN AMERICAN > 90 mL/min (90-120)
[2017-12-09 08:00] VITALS: BP 108/49; BP 203/76
[2017-12-09 19:00] VITALS: BP 114/52
[2017-12-10 08:00] VITALS: BP 110/57
[2017-12-10 19:00] VITALS: BP 102/68
[2017-12-11 06:19] LABS: ANION GAP 12.7 mmol/L (8-16); CALCIUM 8.9 mg/dL (8.5-10.1); CARBON DIOXIDE 24.9 mmol/L (21.0-32.0); CREATININE - SERUM 0.8 mg/dL (0.6-1.3); POTASSIUM - SERUM 4.6 mmol/L (3.5-5.1)
[2017-12-11 06:21] LABS: BASOPHILS 0.4 % (0-2); EOSINOPHILS 2.9 % (0-7); HEMATOCRIT 31.6 % (36.0-48.0); HEMOGLOBIN 10.2 g/dL (12-16); IMMATURE GRANULOCYTES 0.7 % (0-5); LYMPHOCYTES 14.3 % (15-50); MCHC 32.3 g/dL (31.0-37.0); MCV 89.8 fL (80.0-100.0); MEAN PLATELET VOLUME 9.1 fL (7.4-10.4); MONOCYTES 5.6 % (2-11); NEUTROPHILS 76.1 % (40-80); PLATELET COUNT 261 10x3/uL (130-400); RBC 3.52 10x6/uL (4.00-5.40); RDW 15.6 % (11.5-14.5); WBC 7.6 10x3/uL (4.8-10.8)
[2017-12-11 08:00] VITALS: BP 93/46
[2017-12-11 19:00] VITALS: BP 129/72
[2017-12-12 10:26] VITALS: BP 116/52
[2017-12-13 10:19] VITALS: BP 106/56
[2017-12-13 22:00] VITALS: BP 117/62
[2017-12-14 06:30] LABS: CALC OSMOLALITY 264 mosm/kg (275-300); CARBON DIOXIDE 25.3 mmol/L (21.0-32.0); CHLORIDE - SERUM 99 mmol/L (98-107); CREATININE - SERUM 0.7 mg/dL (0.6-1.3); GLUCOSE 91 mg/dL (74-106); POTASSIUM - SERUM 4.7 mmol/L (3.5-5.1); SODIUM 132 mmol/L (136-145); UREA NITROGEN 13 mg/dL (7-18); eGFR NON AFRICAN AMERICAN 87 mL/min (90-120)
[2017-12-14 07:01] LABS: BASOPHILS 0.3 % (0-2); EOSINOPHILS 3.4 % (0-7); HEMATOCRIT 29.4 % (36.0-48.0); HEMOGLOBIN 9.4 g/dL (12-16); LYMPHOCYTES 23.6 % (15-50); MCH 28.8 pg (26.0-34.0); MCV 90.2 fL (80.0-100.0); MEAN PLATELET VOLUME 9.1 fL (7.4-10.4); MONOCYTES 8.2 % (2-11); NEUTROPHILS 63.5 % (40-80); RBC 3.26 10x6/uL (4.00-5.40); RDW 15.4 % (11.5-14.5); WBC 6.7 10x3/uL (4.8-10.8)
[2017-12-14 07:28] LABS: PLATELET COUNT 352 10x3/uL (130-400)
[2017-12-14 07:57] VITALS: BP 131/57
[2017-12-14 19:00] VITALS: BP 111/47
[2017-12-15 08:00] VITALS: BP 161/59
[2017-12-15 19:00] VITALS: BP 116/60
[2017-12-16 07:30] LABS: CALC OSMOLALITY 257 mosm/kg (275-300); CHLORIDE - SERUM 97 mmol/L (98-107); CREATININE - SERUM 0.7 mg/dL (0.6-1.3); GLUCOSE 82 mg/dL (74-106); POTASSIUM - SERUM 4.9 mmol/L (3.5-5.1); SODIUM 129 mmol/L (136-145); UREA NITROGEN 13 mg/dL (7-18); eGFR NON AFRICAN AMERICAN 87 mL/min (90-120)
[2017-12-16 07:32] LABS: BASOPHILS 0.3 % (0-2); EOSINOPHILS 4.6 % (0-7); HEMATOCRIT 30.7 % (36.0-48.0); HEMOGLOBIN 9.9 g/dL (12-16); IMMATURE GRANULOCYTES 2.1 % (0-5); LYMPHOCYTES 29.8 % (15-50); MCH 28.9 pg (26.0-34.0); MCHC 32.2 g/dL (31.0-37.0); MCV 89.5 fL (80.0-100.0); MEAN PLATELET VOLUME 8.8 fL (7.4-10.4); MONOCYTES 9.2 % (2-11); RBC 3.43 10x6/uL (4.00-5.40); RDW 15.2 % (11.5-14.5); WBC 6.8 10x3/uL (4.8-10.8)
[2017-12-16 07:53] LABS: PLATELET COUNT 445 10x3/uL (130-400)
[2017-12-16 08:00] VITALS: BP 122/56
[2017-12-16 21:33] VITALS: BP 124/56
[2017-12-17 13:27] VITALS: BP 170/68
[2017-12-17 19:00] VITALS: BP 124/51
[2017-12-18 08:03] VITALS: BP 137/47
[2017-12-18 08:07] LABS: BASOPHILS 0.3 % (0-2); EOSINOPHILS 2.5 % (0-7); HEMATOCRIT 32.6 % (36.0-48.0); HEMOGLOBIN 10.5 g/dL (12-16); IMMATURE GRANULOCYTES 2.7 % (0-5); LYMPHOCYTES 28.1 % (15-50); MCH 28.7 pg (26.0-34.0); MCHC 32.2 g/dL (31.0-37.0); MCV 89.1 fL (80.0-100.0); MEAN PLATELET VOLUME 8.5 fL (7.4-10.4); MONOCYTES 9.1 % (2-11); NEUTROPHILS 57.3 % (40-80); PLATELET COUNT 491 10x3/uL (130-400); RBC 3.66 10x6/uL (4.00-5.40); RDW 15.1 % (11.5-14.5); WBC 7.9 10x3/uL (4.8-10.8)
[2017-12-18 08:09] LABS: ANION GAP 13.4 mmol/L (8-16); CALCIUM 9.4 mg/dL (8.5-10.1); CARBON DIOXIDE 26.9 mmol/L (21.0-32.0); CREATININE - SERUM 0.8 mg/dL (0.6-1.3); POTASSIUM - SERUM 5.3 mmol/L (3.5-5.1)
[2017-12-18 19:00] VITALS: BP 162/78
[2017-12-19 07:40] LABS: BASOPHILS 0.3 % (0-2); EOSINOPHILS 2.4 % (0-7); HEMATOCRIT 30.5 % (36.0-48.0); HEMOGLOBIN 9.9 g/dL (12-16); IMMATURE GRANULOCYTES 3.2 % (0-5); LYMPHOCYTES 27.9 % (15-50); MCHC 32.5 g/dL (31.0-37.0); MCV 89.4 fL (80.0-100.0); MEAN PLATELET VOLUME 8.5 fL (7.4-10.4); MONOCYTES 10.1 % (2-11); NEUTROPHILS 56.1 % (40-80); PLATELET COUNT 463 10x3/uL (130-400); RBC 3.41 10x6/uL (4.00-5.40); RDW 15.4 % (11.5-14.5); WBC 9.1 10x3/uL (4.8-10.8)
[2017-12-19 07:45] VITALS: BP 111/58
[2017-12-19 08:54] LABS: ANION GAP 12.9 mmol/L (8-16); CALCIUM 9.4 mg/dL (8.5-10.1); CARBON DIOXIDE 26.2 mmol/L (21.0-32.0); CREATININE - SERUM 0.8 mg/dL (0.6-1.3)
[2017-12-19 09:00] LABS: POTASSIUM - SERUM 5.1 mmol/L (3.5-5.1)
[2017-12-19 20:30] VITALS: BP 115/52
[2017-12-20 09:09] VITALS: BP 125/48
[2017-12-20 20:30] VITALS: BP 111/63
[2017-12-21 08:00] VITALS: BP 143/63
[2017-12-21 09:42] LABS: ANION GAP 15.5 mmol/L (8-16); CALCIUM 9.8 mg/dL (8.5-10.1); CARBON DIOXIDE 23.6 mmol/L (21.0-32.0); CREATININE - SERUM 0.8 mg/dL (0.6-1.3); POTASSIUM - SERUM 5.1 mmol/L (3.5-5.1)
[2017-12-21 19:00] VITALS: BP 127/60
[2017-12-22 08:42] VITALS: BP 148/62
== END 2017-12-22 14:34 | disposition home health service (06) | DRG 91 ==
LOC: D.REHAB 14:56
PROVIDERS: Emergency Medicine
DX: G72.81 Critical illness myopathy (principal); J96.01 Acute respiratory failure with hypoxia; J15.9 Unspecified bacterial pneumonia; B44.9 Aspergillosis, unspecified; E87.0 Hyperosmolality and hypernatremia; K92.1 Melena; R13.12 Dysphagia, oropharyngeal phase; I27.20 Pulmonary hypertension, unspecified; J44.9 Chronic obstructive pulmonary disease, unspecified; K21.9 Gastro-esophageal reflux disease without esophagitis; I48.91 Unspecified atrial fibrillation; D72.829 Elevated white blood cell count, unspecified; I25.5 Ischemic cardiomyopathy; I10 Essential (primary) hypertension; E83.39 Other disorders of phosphorus metabolism; E83.41 Hypermagnesemia; R79.89 Other specified abnormal findings of blood chemistry; R53.81 Other malaise; F32.9 Major depressive disorder, single episode, unspecified; K62.89 Other specified diseases of anus and rectum